=== PATIENT | female | born 1940 | race Caucasian/White ===

== ENCOUNTER → 2017-05-17 | Outpatient (CLI) | payer MEDICARE ==
--- NOTE | 2017-05-18 10:38 | MM ---
Reason for exam: screening (asymptomatic). Last mammogram was performed 1 year and 3 months ago. History: Patient is postmenopausal. Family history of breast cancer in mother at age 65 and breast cancer in grandmother at age 50. Physical Findings: A clinical breast exam by your physician is recommended on an annual basis and results should be correlated with mammographic findings. MG 3D Screening Mammo W/Cad Bilateral CC and MLO view(s) were taken. Prior study comparison: February 02, 2016, bilateral MG 3d screening mammo w/cad. October 14, 2014, left breast MG diagnostic mammo LT w CAD. There are scattered fibroglandular densities. Finding: There are vascular calcifications. There is no discrete abnormality. No significant changes in finding since February 02, 2016 and October 14, 2014. ASSESSMENT: Benign, BI-RAD 2 RECOMMENDATION: Routine screening mammogram of both breasts in 1 year.
== END | disposition home or self-care (01) ==
LOC: RADMAMWWP 11:01
PROVIDERS: ATTEND Family Medicine
DX: Z12.31 Encounter for screening mammogram for malignant neoplasm of breast (principal)
CPT/HCPCS: 77063; G0202

== ENCOUNTER 2018-11-27 19:46 | Inpatient (IN) | payer MEDICARE ==
--- NOTE | 2018-11-27 20:51 | ED ---
Chest Pain HPI - General Chief Complaint: Chest Pain Stated Complaint: chest pain Time Seen by Provider: 11/27/18 20:20 Source: patient, RN notes reviewed, old records reviewed - History of Present Illness Initial Comments: This is an 78-year-old female the ER for evaluation. Patient resents today for evaluation regarding chest pain. Patient has persistent chest pain currently and will admit for cardiac observation MD Complaint: chest pain -: hour(s) Pain Location: substernal, left chest Pain Radiation: none Severity: mild Severity scale (1-10): 2 Quality: heaviness Consistency: constant Improves With: nothing Worsens With: nothing Anginal Symptoms: dyspnea Treatments Prior to Arrival: none - Related Data Home Medications Medication Instructions Recorded Confirmed Allopurinol [Zyloprim] 100 mg PO DAILY 11/27/18 11/27/18 Ezetimibe [Zetia] 10 mg PO DAILY 11/27/18 11/27/18 Metoprolol Succinate [Toprol XL] 200 mg PO DAILY 11/27/18 11/27/18 Montelukast [Singulair] 10 mg PO HS 11/27/18 11/27/18 Niacin [Niaspan] 1,000 mg PO HS 11/27/18 11/27/18 Ramipril 20 mg PO DAILY 11/27/18 11/27/18 Verapamil HCl [Verapamil ER] 240 mg PO DAILY 11/27/18 11/27/18 Warfarin [Coumadin] 3 mg PO HS 11/27/18 11/27/18 metFORMIN HCL ER [Glucophage Xr] 500 mg PO DAILY 11/27/18 11/27/18 Allergies Allergy/AdvReac Type Severity Reaction Status Date / Time Iodinated Contrast- Oral and Allergy Itching Verified 11/27/18 20:51 IV Dye [Iodinated Contrast Media - IV Dye] morphine Allergy Itching Verified 11/27/18 20:51 Review of Systems ROS Statement: Those systems with pertinent positive or pertinent negative responses have been documented in the HPI. ROS Other: All systems not noted in ROS Statement are negative. EKG Findings - EKG Comments: EKG Findings:: EKG shows sinus rhythm rate of 67, SD 154, QRS 84, QTC 452 Past Medical History Past Medical History: Chest Pain / Angina, Diabetes Mellitus, Hyperlipidemia, Hypertension, Pulmonary Embolus (PE), Renal Disease Additional Past Surgical History / Comment(s): ovarian cyst surgery 1958 Smoking Status: Never smoker Past Alcohol Use History: None Reported Past Drug Use History: None Reported General Exam General appearance: alert, in no apparent distress Head exam: Present: atraumatic, normocephalic, normal inspection Eye exam: Present: normal appearance, PERRL, EOMI. Absent: scleral icterus, conjunctival injection, periorbital swelling ENT exam: Present: normal exam, mucous membranes moist Neck exam: Present: normal inspection. Absent: tenderness, meningismus, lymphadenopathy Respiratory exam: Present: normal lung sounds bilaterally. Absent: respiratory distress, wheezes, rales, rhonchi, stridor Cardiovascular Exam: Present: regular rate, normal rhythm, normal heart sounds. Absent: systolic murmur, diastolic murmur, rubs, gallop, clicks GI/Abdominal exam: Present: soft, normal bowel sounds. Absent: distended, tenderness, guarding, rebound, rigid Extremities exam: Present: normal inspection, full ROM, normal capillary refill. Absent: tenderness, pedal edema, joint swelling, calf tenderness Back exam: Present: normal inspection Neurological exam: Present: alert, oriented X3, CN II-XII intact Psychiatric exam: Present: normal affect, normal mood Skin exam: Present: warm, dry, intact, normal color. Absent: rash Course Vital Signs 11/27/18 11/27/18 19:52 22:19 Temperature 97.4 F L 98.7 F Pulse Rate 16 L 63 Respiratory 17 19 Rate Blood Pressure 162/105 157/72 O2 Sat by Pulse 98 95 Oximetry - Reevaluation(s) Reevaluation #1: 11/27/18 22:24 Medical record is reviewed Reevaluation #2: 11/27/18 22:24 Patient complains of chest pain Chest Pain [facility] 78-year-old female the ER for evasive chest pain. Patient be admitted for cardiac observation Disposition Clinical Impression: Chest pain Disposition: ADMITTED IP TO THIS HOSP Condition: Fair Instructions (If sedation given, give patient instructions): Chest Pain (ED) Is patient prescribed a controlled substance at d/c from ED?: No Referrals: Malu Murrell III, MD [Primary Care Provider] - 1-2 days
[2018-11-27 21:14] LABS: Basophils % (A) 1 %; Eosinophils # (A) 0.1 k/uL (0-0.7); Eosinophils % (A) 1 %; HCT 44.9 % (34.0-46.0); HGB 14.2 gm/dL (11.4-16.0); Lymphocytes % (A) 26 %; MCH 32.8 pg (25.0-35.0); MCHC 31.8 g/dL (31.0-37.0); MCV 103.3 fL (80.0-100.0); Macrocytosis Slight; Mean Platelet Volume 9.8; Monocytes # (A) 0.5 k/uL (0-1.0); Monocytes % (A) 7 %; Neutrophils # (A) 4.9 k/uL (1.3-7.7); Neutrophils % (A) 63 %; Platelet Count 110 k/uL (150-450); RBC 4.34 m/uL (3.80-5.40); RDW 13.3 % (11.5-15.5); WBC 7.6 k/uL (3.8-10.6)
[2018-11-27 21:24] LABS: ALT 277 U/L (9-52); AST 478 U/L (14-36); African American GFR (CKD) 58 (>60 ml/min/1.73 sqM); Albumin 4.1 g/dL (3.5-5.0); Alkaline Phosphatase 279 U/L (38-126); Anion Gap 9 mmol/L; Blood Urea Nitrogen 20 mg/dL (7-17); Calcium 10.9 mg/dL (8.4-10.2); Carbon Dioxide 27 mmol/L (22-30); Chloride 104 mmol/L (98-107); Glucose 147 mg/dL (74-99); Magnesium 1.2 mg/dL (1.6-2.3); Potassium 4.5 mmol/L (3.5-5.1); Sodium 140 mmol/L (137-145); Total Bilirubin 2.4 mg/dL (0.2-1.3); Total Protein 6.7 g/dL (6.3-8.2)
[2018-11-27 21:32] LABS: INR 1.7 (<1.2); Prothrombin Time 16.6 sec (9.0-12.0)
[2018-11-27 21:34] LABS: D-Dimer 1.72 mg/L FEU (<0.60); Partial Thromboplastin Time 19.5 sec (22.0-30.0)
--- NOTE | 2018-11-27 21:57 | XR ---
EXAMINATION: XR chest 2V DATE AND TIME: 11/27/2018 9:24 PM CLINICAL INDICATION: PHH; Chest Pain TECHNIQUE: Departmental protocol COMPARISON: 02/02/2016 FINDINGS: The lungs are clear. The pleural spaces are negative. The cardiac silhouette is mildly enlarged. The remainder of the mediastinal silhouette is unremarkabl e. The skeletal structures and soft tissues are negative for acute findings. IMPRESSION: NO ACUTE PROCESS.
[2018-11-27 22:01] LABS: Lipase >20000 U/L (23-300)
[2018-11-27] MEDS ORDERED: NITROGLYCERIN SL TABS 0.4 MG TAB SUBLINGUAL PRN (22:20)
[2018-11-27] MEDS ORDERED: ASPIRIN 81 MG PO STA (22:20)
[2018-11-27] MEDS: SODIUM CHLORIDE 0.9% 1,000 ML IV SCH (22:32)
[2018-11-27] MEDS ORDERED: SODIUM CHLORIDE 0.9% 1,000 ML IV STA (22:46)
[2018-11-27] MEDS ORDERED: SODIUM CHLORIDE 0.9% 500 ML 500 ML IV STA (22:46)
[2018-11-27] MEDS ORDERED: diphenhydrAMINE 50 MG/ML 1 ML VIAL IVP STA (23:36)
[2018-11-27] MEDS ORDERED: FAMOTIDINE 20 MG/2 ML VIAL IV STA (23:36)
[2018-11-27] MEDS ORDERED: methylPREDNISolone SOD SUCCI 125 MG/2 ML VIAL IV STA (23:36)
--- NOTE | 2018-11-28 00:40 | US ---
EXAM: US Abdomen Limited, Right Upper Quadrant CLINICAL HISTORY: Pain TECHNIQUE: Real-time ultrasound of the right upper quadrant with image documentation. COMPARISON: CT abdomen and pelvis dated 11/28/2017 at 12:13 AM. FINDINGS: Liver: Heterogeneous echotexture of the liver with ill-defined areas of hypoattenuation seen within the right hepatic lobe. Liver measures up to 17.4 cm. No intrahepatic bile duct dilation. Gallbladder: Distended gallbladder with gallstones. No definite wall thickening or pericholecystic fluid. Negative sonographic Campbell's sign. Common bile duct: Common bile duct is within normal limits for age measuring 10 9 mm. No stones. No dilation. Pancreas: Unremarkable as visualized. Right kidney: Right kidney measures up to 10.1 cm. Cortical thinning of the right kidney. No stones. No hydronephrosis. IMPRESSION: 1. Distended gallbladder with gallstones. No definite wall thickening or pericholecystic fluid. Negative sonographic Campbell's sign. Given the CT findings, findings are concerning for acute cholecystitis. 2. Heterogeneous echotexture of the liver with ill-defined areas of hypoattenuation seen within the right hepatic lobe. This may be reactive to the above findings. Early phlegmon is not excluded.
--- NOTE | 2018-11-28 01:01 | CT ---
EXAM: CT Abdomen and Pelvis With Intravenous Contrast CLINICAL HISTORY: Pain TECHNIQUE: Axial computed tomography images of the abdomen and pelvis with intravenous contrast. CTDI is 0.242, 0.242, 26.5, 15.8 mGy and DLP is 2017.7 mGy-cm. This CT exam was performed using one or more of the following dose reduction techniques: automated exposure control, adjustment of the mA and/or kV according to patient size, and/or use of iterative reconstruction technique. COMPARISON: CT abdomen and pelvis dated 12/01/2009 FINDINGS: Lung bases: Atelectasis and scarring with lung bases. There are couple pulmonary nodules in the lower lobes the largest within the right lower lobe measuring 5 mm. These are new as compared to the prior. ABDOMEN: Liver: Lobular contour of the liver which may represent cirrhosis. Heterogeneous low attenuating lesions in hepatic segment 4A, the and 5. Is measures up to approximately 7.8 cm. Gallbladder and bile ducts: Numerous gallstones. Small amount of fluid seen adjacent to the gallbladder. Pancreas: Unremarkable. Spleen: Unremarkable. Adrenals: Unremarkable. Kidneys and ureters: Unremarkable. Stomach and bowel: Noninflamed colonic diverticulosis. PELVIS: Appendix: No findings to suggest acute appendicitis. Bladder: Unremarkable. Reproductive: Unremarkable as visualized. ABDOMEN and PELVIS: Intraperitoneal space: Unremarkable. Bones/joints: No acute fracture. No dislocation. Soft tissues: Unremarkable. Vasculature: Vascular calcifications No abdominal aortic aneurysm. Lymph nodes: Unremarkable. IMPRESSION: 1. Numerous gallstones. Small amount of fluid seen adjacent to the gallbladder. Findings may represent early acute cholecystitis. 2. Lobular contour of the liver which may represent cirrhosis. Heterogeneous low attenuating lesions in hepatic segment 4A, the and 5. This measures up to approximately 7.8 cm. Findings may represent edema secondary to acute cholecystitis. Early phlegmon is not excluded. Other etiologies such as malignancy are not excluded.
[2018-11-28 03:16] VITALS: BMI 53.4
[2018-11-28 03:43] LABS: Cholesterol 181 mg/dL (<200); HDL Cholesterol 90 mg/dL (40-60); LDL Cholesterol,Calculated 78 mg/dL (0-99); Triglycerides 66 mg/dL (<150)
[2018-11-28] MEDS: MAGNESIUM SULFATE-D5W PMX 1 GM in DEXTROSE/WATER 1 100ML.BAG IVPB SCH ×4 (04:46→10:00)
--- NOTE | 2018-11-28 08:17 | P.CRDCN ---
History of Present Illness Consult date: 11/28/18 Requesting physician: Kaley Addison Consult reason: chest pain Chief complaint: Epigastric discomfort. History of present illness: This is a pleasant 78-year-old female with history of hypertension, diabetes, hyperlipidemia, nonsmoker, no EtOH, who presents to the hospital with symptoms of epigastric discomfort, she also states that she's been having intermittent discomfort in her abdomen. Her appetite overall recently has been poor. She denies any nausea. Chest x-ray on presentation here did not reveal any acute process. EKG shows normal sinus rhythm with nonspecific ST-T wave changes. Ultrasound of the abdomen showed distended gallbladder with gallstones, no definite wall thickening or Yanni-Colace cystic fluid. Negative Campbell sign. Heterogeneous echo texture of the liver with ill-defined areas of hypoattenuation seen within the right hepatic lobe. This may be reactive to the above findings. CAT scan of the abdomen revealed numerous gallstones, small amount of fluid seen adjacent to the gallbladder. Findings may represent acute cholecystitis. Lobular contour the liver may represent cirrhosis, heterogeneous lesions and hepatic segment 4A and 5 measuring up to 7.8 cm may represent edema secondary to acute cholecystitis. Other etiologies such as malignancy not excluded. Blood pressure 156/70 with a heart rate in the 50s, 96% on room air. White blood cell count 7.6, hemoglobin 14.2, platelet count 110. D-dimer 1.7, sodium 140, potassium 4.5, BUN 20 and creatinine 1.0. Magnesium level I.2, total bilirubin 2.4, AST 478, ALT 277, alk phos 279. Troponin negative 3. BNP 919, lipase greater than 20,000. At the time of my examination this morning, franklin nieto is resting comfortably in bed, no overt complaints. Past Medical History Past Medical History: Chest Pain / Angina, Diabetes Mellitus, Hyperlipidemia, Hy pertension, Pulmonary Embolus (PE), Renal Disease History of Any Multi-Drug Resistant Organisms: None Reported Additional Past Surgical History / Comment(s): ovarian cyst surgery 1957 Past Anesthesia/Blood Transfusion Reactions: No Reported Reaction Smoking Status: Never smoker Past Alcohol Use History: None Reported Past Drug Use History: None Reported Medications and Allergies Home Medications Medication Instructions Recorded Confirmed Type Allopurinol [Zyloprim] 100 mg PO DAILY 11/27/18 11/27/18 History Ezetimibe [Zetia] 10 mg PO DAILY 11/27/18 11/27/18 History Metoprolol Succinate [Toprol XL] 200 mg PO DAILY 11/27/18 11/27/18 History Montelukast [Singulair] 10 mg PO HS 11/27/18 11/27/18 History Niacin [Niaspan] 1,000 mg PO HS 11/27/18 11/27/18 History Ramipril 20 mg PO DAILY 11/27/18 11/27/18 History Verapamil HCl [Verapamil ER] 240 mg PO DAILY 11/27/18 11/27/18 History Warfarin [Coumadin] 3 mg PO HS 11/27/18 11/27/18 History metFORMIN HCL ER [Glucophage Xr] 500 mg PO DAILY 11/27/18 11/27/18 History Allergies Allergy/AdvReac Type Severity Reaction Status Date / Time Iodinated Contrast- Oral and Allergy Itching Verified 11/27/18 20:51 IV Dye [Iodinated Contrast Media - IV Dye] morphine Allergy Itching Verified 11/27/18 20:51 Physical Exam Vitals: Vital Signs Temp Pulse Pulse Resp BP BP Pulse Ox 11/28/18 03:49 97.8 F 51 L 16 156/71 96 11/28/18 03:11 97.8 F 51 L 20 156/71 96 11/28/18 01:00 87 16 169/97 100 11/27/18 23:31 97.8 F 70 18 176/73 11/27/18 23:00 64 17 167/71 11/27/18 22:30 68 17 157/72 96 11/27/18 22:19 98.7 F 63 19 157/72 95 11/27/18 22:00 72 17 143/61 11/27/18 21:30 68 18 124/57 97 11/27/18 21:00 67 19 142/59 95 11/27/18 20:30 58 L 20 143/62 98 11/27/18 19:52 97.4 F L 16 L 17 162/105 98 Intake and Output 11/27/18 11/28/18 11/28/18 22:59 06:59 14:59 Other: Voiding Method Incontinent # Voids 3 Weight 132.449 kg 130.7 kg PHYSICAL EXAMINATION: GENERAL: 78-year-old female in no acute distress at the time of my examination HEENT: Head is atraumatic, normocephalic. Pupils equal, round. Sclera anicteric. Conjunctiva are clear. Mucous membranes of the mouth are moist. Neck is supple. There is no elevated jugular venous pressure. No carotid bruit is heard. HEART EXAMINATION: Heart S1 S2 1 systolic murmur is heard CHEST EXAMINATION: Lungs are clear to auscultation and precussion. No chest wall tenderness is noted on palpation or with deep breathing. ABDOMEN: Soft, obese, mild tenderness noted in the mid epigastric area on palpation . Bowel sounds are heard. No organomegaly noted. EXTREMITIES: 2+ peripheral pulses with trace evidence of peripheral edema and no calf tenderness noted. NEUROLOGIC patient is awake, alert and oriented 3 . Results 11/27/18 20:25 11/27/18 20:25 Cardiac Enzymes 11/27/18 11/27/18 11/28/18 Range/Units 20:25 20:25 03:16 AST 478 H (14-36) U/L Troponin I <0.012 <0.012 (0.000-0.034) ng/mL 11/28/18 Range/Units 06:42 AST (14-36) U/L Troponin I <0.012 (0.000-0.034) ng/mL Coagulation 11/27/18 Range/Units 20:25 PT 16.6 H (9.0-12.0) sec APTT 19.5 L (22.0-30.0) sec Lipids 11/28/18 Range/Units 03:16 Triglycerides 66 (<150) mg/dL Cholesterol 181 (<200) mg/dL HDL Cholesterol 90 H (40-60) mg/dL CBC 11/27/18 Range/Units 20:25 WBC 7.6 (3.8-10.6) k/uL RBC 4.34 (3.80-5.40) m/uL Hgb 14.2 (11.4-16.0) gm/dL Hct 44.9 (34.0-46.0) % Plt Count 110 L (150-450) k/uL Comprehensive Metabolic Panel 11/27/18 Range/Units 20:25 Sodium 140 (137-145) mmol/L Potassium 4.5 (3.5-5.1) mmol/L Chloride 104 (98-107) mmol/L Carbon Dioxide 27 (22-30) mmol/L BUN 20 H (7-17) mg/dL Creatinine 1.05 H (0.52-1.04) mg/dL Glucose 147 H (74-99) mg/dL Calcium 10.9 H (8.4-10.2) mg/dL AST 478 H (14-36) U/L ALT 277 H (9-52) U/L Alkaline Phosphatase 279 H (38-126) U/L Total Protein 6.7 (6.3-8.2) g/dL Albumin 4.1 (3.5-5.0) g/dL Current Medications Generic Name Dose Route Start Last Admin Trade Name Freq PRN Reason Stop Dose Admin Aspirin 325 mg 11/28/18 09:00 Aspirin PO DAILY [facility] Atorvastatin Calcium 80 mg 11/28/18 09:00 Lipitor PO DAILY [facility] Sodium Chloride 1,000 mls @ 20 mls/hr 11/27/18 22:30 11/27/18 22:32 Saline 0.9% IV 20 mls/hr .Q24H MALINA Administration Nitroglycerin 0.4 mg 11/27/18 22:20 Nitrostat SUBLINGUAL Q5M PRN Chest Pain Intake and Output 11/27/18 11/28/18 11/28/18 22:59 06:59 14:59 Other: Voiding Method Incontinent # Voids 3 Weight 132.449 kg 130.7 kg 11/27/18 20:25 11/27/18 20:25 EKG Interpretations (text) EKG shows normal sinus rhythm with nonspecific ST-T wave changes noted in the anterior leads. Assessment and Plan Plan: Assessment and plan #1 symptoms of epigastric discomfort, atypical for acute coronary syndrome. Troponins are negative 3. EKG shows a normal sinus rhythm with nonspecific ST- T wave changes. Evidence of possible acute cholecystitis on gallbladder ultrasound and CT of the abdomen. Associated elevated liver enzymes. #2 hypertension #3 diabetes #4 hyperlipidemia Number 5 history of pulmonary embolism, on Coumadin, INR 1.7 Plan We will obtain an echocardiogram with Doppler study. Decrease aspirin to 81 mg daily, continue Lipitor. Resume, ART inhibitor and Toprol. Hold verapamil for now, heart rate in the 50s to 60s this morning. Further recommendations to follow. DNP note has been reviewed, I agree with a documented findings and plan of care. Patient was seen and examined.
[2018-11-28] MEDS ORDERED: MAGNESIUM SULFATE-D5W PMX 1 GM in DEXTROSE/WATER 1 100ML.BAG IVPB SCH (08:30)
[2018-11-28] MEDS ORDERED: ASPIRIN 325 MG TAB PO SCH (09:00)
[2018-11-28] MEDS ORDERED: METOPROLOL SUCCINATE (ER) 100 MG TAB.ER.24H PO SCH (09:00)
[2018-11-28] MEDS ORDERED: LISINOPRIL 20 MG TAB PO SCH (09:00)
[2018-11-28] MEDS: ATORVASTATIN 80 MG TAB PO SCH (09:54)
[2018-11-28] MEDS: EZETIMIBE 10 MG TAB PO SCH (09:54)
[2018-11-28] MEDS: ASPIRIN 81 MG PO SCH (09:54)
[2018-11-28] MEDS: metFORMIN 500 MG TAB PO SCH ×2 (09:55→20:10)
--- NOTE | 2018-11-28 11:50 | P.NPCON ---
History of Present Illness - Reason for Consult chronic renal failure - History of Present Illness Reason for consultation: Chronic kidney disease and hypercalcemia History of present illness: Patient is a 78-year-old female sitting in renal consultation for chronic kidney disease and hypercalcemia. Patient has chronic kidney disease stage III with baseline creatinine in the range of 1-1.2. Patient also has history of hypercalcemia which has been worked up as an outpatient. Majority of the workup has been negative except for an elevated PTH. Patient was taking hydrochlorothiazide as well as vitamin D supplementation which were discontinued when she was seen in the office. Patient presented to the hospital with epigastric discomfort. She also complained of pain radiating to her back. Patient had a CT with IV contrast on November 27 which revealed gallstones and concern for acute cholecystitis. Additionally her lipase level is noted to be greater than 20,000. Currently her pain is relatively well controlled. She has been voiding. No hematuria or dysuria. Denies use of nonsteroidals. Calcium level was 10.9 on admission. Labs from today are pending. Vital signs are stable. General: The patient appeared well nourished and normally developed. HEENT: Head exam is unremarkable. Neck is without jugular venous distension. LUNGS: Lungs are clear to auscultation and percussion. Breath sounds decreased. HEART: Rate and Rhythm are regular. First and second heart sounds normal. No mur murs, rubs or gallops. ABDOMEN: Abdominal exam reveals normal bowel sounds. Non-tender and non-dist ended. EXTREMITITES: No clubbing, cyanosis, or edema. Past Medical History Past Medical History: Chest Pain / Angina, Diabetes Mellitus, Hyperlipidemia, Hypertension, Pulmonary Embolus (PE), Renal Disease History of Any Multi-Drug Resistant Organisms: None Reported Additional Past Surgical History / Comment(s): ovarian cyst surgery 1957 Past Anesthesia/Blood Transfusion Reactions: No Reported Reaction Smoking Status: Never smoker Past Alcohol Use History: None Reported Past Drug Use History: None Reported Medications and Allergies Home Medications Medication Instructions Recorded Confirmed Type Allopurinol [Zyloprim] 100 mg PO DAILY 11/27/18 11/27/18 History Ezetimibe [Zetia] 10 mg PO DAILY 11/27/18 11/27/18 History Metoprolol Succinate [Toprol XL] 200 mg PO DAILY 11/27/18 11/27/18 History Montelukast [Singulair] 10 mg PO HS 11/27/18 11/27/18 History Niacin [Niaspan] 1,000 mg PO HS 11/27/18 11/27/18 History Ramipril 20 mg PO DAILY 11/27/18 11/27/18 History Verapamil HCl [Verapamil ER] 240 mg PO DAILY 11/27/18 11/27/18 History Warfarin [Coumadin] 3 mg PO HS 11/27/18 11/27/18 History metFORMIN HCL ER [Glucophage Xr] 500 mg PO DAILY 11/27/18 11/27/18 History Allergies Allergy/AdvReac Type Severity Reaction Status Date / Time Iodinated Contrast- Oral and Allergy Itching Verified 11/27/18 20:51 IV Dye [Iodinated Contrast Media - IV Dye] morphine Allergy Itching Verified 11/27/18 20:51 Physical Exam Vitals: Vital Signs Temp Pulse Pulse Resp BP BP Pulse Ox 11/28/18 08:00 97.6 F 50 L 16 167/76 95 11/28/18 03:49 97.8 F 51 L 16 156/71 96 11/28/18 03:11 97.8 F 51 L 20 156/71 96 11/28/18 01:00 87 16 169/97 100 11/27/18 23:31 97.8 F 70 18 176/73 11/27/18 23:00 64 17 167/71 11/27/18 22:30 68 17 157/72 96 11/27/18 22:19 98.7 F 63 19 157/72 95 11/27/18 22:00 72 17 143/61 11/27/18 21:30 68 18 124/57 97 11/27/18 21:00 67 19 142/59 95 11/27/18 20:30 58 L 20 143/62 98 11/27/18 19:52 97.4 F L 16 L 17 162/105 98 Intake and Output 11/27/18 11/28/18 11/28/18 22:59 06:59 14:59 Other: Voiding Method Incontinent Incontinent # Voids 3 Weight 132.449 kg 130.7 kg Results - Lab Results Most recent lab results Calcium 10.9 mg/dL (8.4-10.2) H 11/27/18 20:25 Magnesium 1.2 mg/dL (1.6-2.3) L 11/27/18 20:25 11/27/18 20:25 11/27/18 20:25 Assessment and Plan Plan: Assessment: 1. Chronic kidney disease stage III with baseline creatinine in the range of 1- 1.2. GFR at baseline. Monitor renal function closely as she did receive IV contrast in November 27. 2. Hypercalcemia. Calcium level 10.9 on admission. Workup outpatient has been negative except for elevated PTH. She is not on any thiazide diuretics or calcium or vitamin D supplementation outpatient. 3. Hypomagnesemia from poor oral intake. Being replaced. 4. Epigastric discomfort. Imaging is concerning for acute cholecystitis. Lipase level also greater than 20,000 concerning for acute pancreatitis. Surgery consulted. Plan: Start normal saline at 75 mL an hour. Zoledronic acid 4 mg IV once today. Check nuclear medicine parathyroid scan. Check PTH level. Continue to monitor renal function and urine output. Follow-up echocardiogram. Repeat electrolytes in the morning. Thank you for the consultation. I will continue to follow patient with you during her hospital stay.
[2018-11-28] MEDS ORDERED: ZOLEDRONIC ACID 4 MG in SODIUM CHLORIDE 0.9% 100 ML IV ONE (12:00)
[2018-11-28] MEDS ORDERED: SODIUM CHLORIDE 0.9% 250 ML with PAMIDRONATE 60 MG IV ONE ×2 (13:00)
--- NOTE | 2018-11-28 13:15 | P.HPIM ---
History of Present Illness This is a pleasant 48 years old female with past medical history of diabetes mellitus, hyperlipidemia, hypertension, pulmonary embolism on Coumadin. Patient presents because of epigastric pain and up in the chest to the lower neck. The pain is felt like pressure radiating to the back was pretty severe when she came in, currently she is pain free. No nausea vomiting, she had regular bowel movement yesterday. No dyspnea. No headache or syncope Patient Vitas looks stable, blood pressure 167/76. Heart rate in 50s. Labs rev iewed and CBC is unremarkable, INR is 1.7, d-dimer is 1.7, creatinine 1.05. Liver enzymes markedly elevated at 478 and 277. Serial troponins are negative with less than 0.012. Elevated lipase more than 20,000. CAT scan of the abdomen with intravenous contrast showing gallstones and possible acute cholecystitis, cirrhosis of the liver. EKG showing normal sinus rhythm at [address]-T changes. Chest x-ray no acute process. Review of Systems CONSTITUTIONAL: No fever, no malaise, no fatigue. HEENT: No recent visual problems or hearing problems. Denied any sore throat. CARDIOVASCULAR: No orthopnea, PND, no palpitations, no syncope. PULMONARY: No shortness of breath, no cough, no hemoptysis. GASTROINTESTINAL: No diarrhea, no nausea, no vomiting, no abdominal pain. Normoactive bowel sounds. NEUROLOGICAL: No headaches, no weakness, no numbness. HEMATOLOGICAL: Denies any bleeding or petechiae. GENITOURINARY: Denies any burning micturition, frequency, or urgency. MUSCULOSKELETAL/RHEUMATOLOGICAL: Denies any joint pain, swelling, or any muscle pain. ENDOCRINE: Denies any polyuria or polydipsia. Past Medical History Past Medical History: Chest Pain / Angina, Diabetes Mellitus, Hyperlipidemia, Hypertension, Pulmonary Embolus (PE), Renal Disease History of Any Multi-Drug Resistant Organisms: None Reported Additional Past Surgical History / Comment(s): ovarian cyst surgery 1957 Past Anesthesia/Blood Transfusion Reactions: No Reported Reaction Smoking Status: Never smoker Past Alcohol Use History: None Reported Past Drug Use History: None Reported Medications and Allergies Home Medications Medication Instructions Recorded Confirmed Type Allopurinol [Zyloprim] 100 mg PO DAILY 11/27/18 11/27/18 History Ezetimibe [Zetia] 10 mg PO DAILY 11/27/18 11/27/18 History Metoprolol Succinate [Toprol XL] 200 mg PO DAILY 11/27/18 11/27/18 History Montelukast [Singulair] 10 mg PO HS 11/27/18 11/27/18 History Niacin [Niaspan] 1,000 mg PO HS 11/27/18 11/27/18 History Ramipril 20 mg PO DAILY 11/27/18 11/27/18 History Verapamil HCl [Verapamil ER] 240 mg PO DAILY 11/27/18 11/27/18 History Warfarin [Coumadin] 3 mg PO HS 11/27/18 11/27/18 History metFORMIN HCL ER [Glucophage Xr] 500 mg PO DAILY 11/27/18 11/27/18 History Allergies Allergy/AdvReac Type Severity Reaction Status Date / Time Iodinated Contrast- Oral and Allergy Itching Verified 11/27/18 20:51 IV Dye [Iodinated Contrast Media - IV Dye] morphine Allergy Itching Verified 11/27/18 20:51 Physical Exam Vitals: Vital Signs Temp Pulse Pulse Resp BP BP Pulse Ox 11/28/18 08:00 97.6 F 50 L 16 167/76 95 11/28/18 03:49 97.8 F 51 L 16 156/71 96 11/28/18 03:11 97.8 F 51 L 20 156/71 96 11/28/18 01:00 87 16 169/97 100 11/27/18 23:31 97.8 F 70 18 176/73 11/27/18 23:00 64 17 167/71 11/27/18 22:30 68 17 157/72 96 11/27/18 22:19 98.7 F 63 19 157/72 95 11/27/18 22:00 72 17 143/61 11/27/18 21:30 68 18 124/57 97 11/27/18 21:00 67 19 142/59 95 11/27/18 20:30 58 L 20 143/62 98 11/27/18 19:52 97.4 F L 16 L 17 162/105 98 Intake and Output 11/27/18 11/28/18 11/28/18 22:59 06:59 14:59 Other: Voiding Method Incontinent Incontinent # Voids 3 Weight 132.449 kg 130.7 kg GENERAL: The patient is alert and oriented x3, not in any acute distress. Well developed, well nourished. HEENT: Pupils are round and equally reacting to light. EOMI. No scleral icterus. No conjunctival pallor. Normocephalic, atraumatic. No pharyngeal erythema. No thyromegaly. CARDIOVASCULAR: S1 and S2 present. No murmurs, rubs, or gallops. PULMONARY: Chest is clear to auscultation, no wheezing or crackles. ABDOMEN: Soft, nontender, nondistended, normoactive bowel sounds. No palpable organomegaly. MUSCULOSKELETAL: No joint swelling or deformity. EXTREMITIES: No cyanosis, clubbing, or pedal edema. NEUROLOGICAL: Gross neurological examination did not reveal any focal deficits. SKIN: No rashes. Results CBC & Chem 7: 11/27/18 20:25 11/27/18 20:25 Labs: Abnormal Lab Results - Last 24 Hours (Table) 11/27/18 11/27/18 11/27/18 Range/Units 20:25 20:25 20:25 MCV 103.3 H (80.0-100.0) fL Plt Count 110 L (150-450) k/uL PT 16.6 H (9.0-12.0) sec INR 1.7 H (<1.2) APTT 19.5 L (22.0-30.0) sec D-Dimer 1.72 H (<0.60) mg/L FEU BUN 20 H (7-17) mg/dL Creatinine 1.05 H (0.52-1.04) mg/dL Glucose 147 H (74-99) mg/dL Calcium 10.9 H (8.4-10.2) mg/dL Magnesium 1.2 L (1.6-2.3) mg/dL Total Bilirubin 2.4 H (0.2-1.3) mg/dL AST 478 H (14-36) U/L ALT 277 H (9-52) U/L Alkaline Phosphatase 279 H (38-126) U/L HDL Cholesterol (40-60) mg/dL Lipase >88954 H (23-300) U/L 11/28/18 Range/Units 03:16 MCV (80.0-100.0) fL Plt Count (150-450) k/uL PT (9.0-12.0) sec INR (<1.2) APTT (22.0-30.0) sec D-Dimer (<0.60) mg/L FEU BUN (7-17) mg/dL Creatinine (0.52-1.04) mg/dL Glucose (74-99) mg/dL Calcium (8.4-10.2) mg/dL Magnesium (1.6-2.3) mg/dL Total Bilirubin (0.2-1.3) mg/dL AST (14-36) U/L ALT (9-52) U/L Alkaline Phosphatase (38-126) U/L HDL Cholesterol 90 H (40-60) mg/dL Lipase (23-300) U/L Thrombosis Risk Factor Assmnt - Choose All That Apply Any of the Below Risk Factors Present?: Yes Each Factor Represents 1 point: Obesity (BMI >25), Swollen legs (current) Other Risk Factors: Yes Each Risk Factor Represents 3 Points: Age 75 years or older Other congenital or acquired thrombophilia - If yes, enter type in comment: No Thrombosis Risk Factor Assessment Total Risk Factor Score: 5 Thrombosis Risk Factor Assessment Level: High Risk Assessment and Plan Assessment: Acute Cholecystitis with elevated liver enzymes Acute Pancreatitis Chronic kidney disease, stage III. Patient got intravenous contrast and 11/27/2018 History of pulmonary embolism on Coumadin Essential hypertension Hyperlipidemia Diabetes mellitus Plan: This is a pleasant 6 years old female who presents with possible acute cholecystitis and elevated lipase. Keep patient nothing by mouth, continue with IV fluids, pain management. Call surgical consult. Appreciate input from nephrology and cardiology team.Surgical team has already been consulted. Labs and medication were reviewed. Continue same treatment. Continue with symptomatic treatment. Resume home medication. Monitor lytes and vitals. DVT and GI prophylaxis. Further recommendations of the clinical course of the patient DVT prophylaxis: Subcutaneous heparin GI Prophylaxis: Pepcid Prognosis is guarded
[2018-11-28 13:34] LABS: Basophils % (A) 0 %; Eosinophils % (A) 1 %; HCT 42.6 % (34.0-46.0); HGB 13.5 gm/dL (11.4-16.0); Lymphocytes # (A) 0.8 k/uL (1.0-4.8); Lymphocytes % (A) 23 %; MCH 32.7 pg (25.0-35.0); MCHC 31.8 g/dL (31.0-37.0); MCV 102.9 fL (80.0-100.0); Macrocytosis Slight; Monocytes # (A) 0.1 k/uL (0-1.0); Monocytes % (A) 2 %; Neutrophils # (A) 2.4 k/uL (1.3-7.7); Neutrophils % (A) 73 %; RBC 4.13 m/uL (3.80-5.40); RDW 14.2 % (11.5-15.5); WBC 3.2 k/uL (3.8-10.6)
[2018-11-28 13:54] LABS: Platelet Count 91 k/uL (150-450)
[2018-11-28 13:55] LABS: Albumin 3.7 g/dL (3.5-5.0); Calcium 10.4 mg/dL (8.4-10.2); Potassium 4.6 mmol/L (3.5-5.1); Total Bilirubin 2.7 mg/dL (0.2-1.3); Total Protein 6.6 g/dL (6.3-8.2)
--- NOTE | 2018-11-28 15:43 | P.GSCN ---
<Chana Sin A - Last Filed: 11/28/18 15:36> History of Present Illness Consult date: 11/28/18 Reason for Consult: Acute cholecystitis Requesting physician: Vanessa Espinal History of present illness: CHIEF COMPLAINT: Abdominal pain HISTORY OF PRESENT ILLNESS: 78-year-old female who presented to the emergency room with a chief complaint of chest pain and abdominal pain. Patient reports she was at a senior luncheon yesterday and had a club sandwich to eat. Shortly after she began having abdominal pain that persisted for a few hours. Patient reports the pain was mostly in the epigastric region and radiated to her back. She denies nausea or vomiting. Denies constipation or diarrhea. Denies fever or chills. Patient reports she has had intermittent abdominal pain over the last 4-6 months. Patient unable to recall if certain foods have triggered abdominal pain. She denies alcohol use. PAST MEDICAL HISTORY: See list. PAST SURGICAL HISTORY: See list. SOCIAL HISTORY: No illicit drug use. REVIEW OF SYSTEMS: CONSTITUTIONAL: Denies fever or chills. HEENT: Denies blurred vision, vision changes, or eye pain. Denies hemoptysis CARDIOVASCULAR: Reports chest pain/epigastric pain. RESPIRATORY: No shortness of breath. GASTROINTESTINAL: Refer to HPI for pertinent findings HEMATOLOGIC: Denies bleeding disorders. GENITOURINARY: Denies any blood in urine. SKIN: Denies pruitis. Denies rash. PHYSICAL EXAM: VITAL SIGNS: Reviewed. GENERAL: Well-developed in no acute distress. HEENT: No sclera icterus. Extraocular movements grossly intact. Moist buccal mucosa. Head is atraumatic, normocephalic. ABDOMEN: Soft. Nondistended. Nontender. Positive bowel sounds. NEUROLOGIC: Alert and oriented. Cranial nerves II through XII grossly intact. LABORATORY DATA: Laboratory data upon admission reveals white count 7.6. Hemoglobin 14.2. INR 1.7. Potassium 4.5. Bilirubin 2.4. AST 478. ALT 277. Alkaline phosphatase 279. Lipase greater than 20,000. Repeat blood work this morning reveals amylase 571. Lipase 6254. Bilirubin 2.7. AST 740. ALT 490. IMAGIN. Gallbladder ultrasound: Distended, better with gallstones. No definite wall thickening or pericholecystic fluid. Heterogeneous echotexture of the liver with ill-defined areas of hypoattenuation seen within the right hepatic lobe. This may be reactive to findings above regarding gallbladder. Early phlegmon no t excluded. 2. CT abdomen and pelvis: Numerous gallstones. Small amount of fluid seen adjacent to the gallbladder. Findings may represent early acute cholecystitis. Lobular contour of the liver which may represent cirrhosis. ASSESSMENT: 1. Epigastric pain with radiation to back 2. Acute pancreatitis 3. Acute cholecystitis 4. Cholelithiasis 5. Elevated bilirubin 6. Transaminitis PLAN: 1. NPO. Increase IV fluids to 125cc/hr 2. Monitor labs 3. Continue to hold Coumadin 4. Patient will require cholecystectomy when medically stable. Likely to be performed on an outpatient basis. Nurse practitioner note has been reviewed by physician. Signing provider agrees with the documented findings, assessment, and plan of care. Past Medical History Past Medical History: Chest Pain / Angina, Diabetes Mellitus, Hyperlipidemia, Hypertension, Pulmonary Embolus (PE), Renal Disease History of Any Multi-Drug Resistant Organisms: None Reported Additional Past Surgical History / Comment(s): ovarian cyst surgery 1957 Past Anesthesia/Blood Transfusion Reactions: No Reported Reaction Smoking Status: Never smoker Past Alcohol Use History: None Reported Past Drug Use History: None Reported Medications and Allergies Home Medications Medication Instructions Recorded Confirmed Type Allopurinol [Zyloprim] 100 mg PO DAILY 11/27/18 11/27/18 History Ezetimibe [Zetia] 10 mg PO DAILY 11/27/18 11/27/18 History Metoprolol Succinate [Toprol XL] 200 mg PO DAILY 11/27/18 11/27/18 History Montelukast [Singulair] 10 mg PO HS 11/27/18 11/27/18 History Niacin [Niaspan] 1,000 mg PO HS 11/27/18 11/27/18 History Ramipril 20 mg PO DAILY 11/27/18 11/27/18 History Verapamil HCl [Verapamil ER] 240 mg PO DAILY 11/27/18 11/27/18 History Warfarin [Coumadin] 3 mg PO HS 11/27/18 11/27/18 History metFORMIN HCL ER [Glucophage Xr] 500 mg PO DAILY 11/27/18 11/27/18 History Allergies Allergy/AdvReac Type Severity Reaction Status Date / Time Iodinated Contrast- Oral and Allergy Itching Verified 11/27/18 20:51 IV Dye [Iodinated Contrast Media - IV Dye] morphine Allergy Itching Verified 11/27/18 20:51 Surgical - Exam Vital Signs Temp Pulse Resp BP Pulse Ox 97.4 F L 16 L 17 162/105 98 11/27/18 19:52 11/27/18 19:52 11/27/18 19:52 11/27/18 19:52 11/27/18 19:52 Results - Labs 11/28/18 03:16 11/28/18 03:16 Abnormal Lab Results - Last 24 Hours (Table) 11/27/18 11/27/18 11/27/18 Range/Units 20:25 20:25 20:25 WBC (3.8-10.6) k/uL MCV 103.3 H (80.0-100.0) fL Plt Count 110 L (150-450) k/uL Lymphocytes # (1.0-4.8) k/uL PT 16.6 H (9.0-12.0) sec INR 1.7 H (<1.2) APTT 19.5 L (22.0-30.0) sec D-Dimer 1.72 H (<0.60) mg/L FEU BUN 20 H (7-17) mg/dL Creatinine 1.05 H (0.52-1.04) mg/dL Glucose 147 H (74-99) mg/dL Calcium 10.9 H (8.4-10.2) mg/dL Magnesium 1.2 L (1.6-2.3) mg/dL Total Bilirubin 2.4 H (0.2-1.3) mg/dL AST 478 H (14-36) U/L ALT 277 H (9-52) U/L Alkaline Phosphatase 279 H (38-126) U/L HDL Cholesterol (40-60) mg/dL Amylase (30-110) U/L Lipase >15703 H (23-300) U/L 11/28/18 11/28/18 11/28/18 Range/Units 03:16 03:16 03:16 WBC 3.2 L (3.8-10.6) k/uL MCV 102.9 H (80.0-100.0) fL Plt Count 91 L (150-450) k/uL Lymphocytes # 0.8 L (1.0-4.8) k/uL PT (9.0-12.0) sec INR (<1.2) APTT (22.0-30.0) sec D-Dimer (<0.60) mg/L FEU BUN (7-17) mg/dL Creatinine (0.52-1.04) mg/dL Glucose 209 H (74-99) mg/dL Calcium 10.4 H (8.4-10.2) mg/dL Magnesium (1.6-2.3) mg/dL Total Bilirubin 2.7 H (0.2-1.3) mg/dL AST 740 H (14-36) U/L ALT 490 H (9-52) U/L Alkaline Phosphatase 294 H (38-126) U/L HDL Cholesterol 90 H (40-60) mg/dL Amylase 581 H* (30-110) U/L Lipase 6354 H (23-300) U/L Diabetes panel 11/27/18 11/28/18 11/28/18 Range/Units 20:25 03:16 03:16 Sodium 140 139 (137-145) mmol/L Potassium 4.5 4.6 (3.5-5.1) mmol/L Chloride 104 106 (98-107) mmol/L Carbon Dioxide 27 23 (22-30) mmol/L BUN 20 H 17 (7-17) mg/dL Creatinine 1.05 H 1.00 (0.52-1.04) mg/dL Glucose 147 H 209 H (74-99) mg/dL Calcium 10.9 H 10.4 H (8.4-10.2) mg/dL AST 478 H 740 H (14-36) U/L ALT 277 H 490 H (9-52) U/L Alkaline Phosphatase 279 H 294 H (38-126) U/L Total Protein 6.7 6.6 (6.3-8.2) g/dL Albumin 4.1 3.7 (3.5-5.0) g/dL Triglycerides 66 (<150) mg/dL HDL Cholesterol 90 H (40-60) mg/dL Thyroid panel 11/28/18 Range/Units 03:16 TSH 1.940 (0.465-4.680) mIU/L Calcium panel 11/27/18 11/28/18 Range/Units 20:25 03:16 Calcium 10.9 H 10.4 H (8.4-10.2) mg/dL Albumin 4.1 3.7 (3.5-5.0) g/dL Pituitary panel 11/27/18 11/28/18 11/28/18 Range/Units 20:25 03:16 03:16 Sodium 140 139 (137-145) mmol/L Potassium 4.5 4.6 (3.5-5.1) mmol/L Chloride 104 106 (98-107) mmol/L Carbon Dioxide 27 23 (22-30) mmol/L BUN 20 H 17 (7-17) mg/dL Creatinine 1.05 H 1.00 (0.52-1.04) mg/dL Glucose 147 H 209 H (74-99) mg/dL Calcium 10.9 H 10.4 H (8.4-10.2) mg/dL TSH 1.940 (0.465-4.680) mIU/L Adrenal panel 11/27/18 11/28/18 Range/Units 20:25 03:16 Sodium 140 139 (137-145) mmol/L Potassium 4.5 4.6 (3.5-5.1) mmol/L Chloride 104 106 (98-107) mmol/L Carbon Dioxide 27 23 (22-30) mmol/L BUN 20 H 17 (7-17) mg/dL Creatinine 1.05 H 1.00 (0.52-1.04) mg/dL Glucose 147 H 209 H (74-99) mg/dL Calcium 10.9 H 10.4 H (8.4-10.2) mg/dL Total Bilirubin 2.4 H 2.7 H (0.2-1.3) mg/dL AST 478 H 740 H (14-36) U/L ALT 277 H 490 H (9-52) U/L Alkaline Phosphatase 279 H 294 H (38-126) U/L Total Protein 6.7 6.6 (6.3-8.2) g/dL Albumin 4.1 3.7 (3.5-5.0) g/dL <Triston Le - Last Filed: 11/29/18 08:17> History of Present Illness History of present illness: As above. Patient had evaluated as she was down having her parathyroid scan when I was rounding. Will evaluate 6/28 Surgical - Exam Vital Signs Temp Pulse Resp BP Pulse Ox 97.4 F L 16 L 17 162/105 98 11/27/18 19:52 11/27/18 19:52 11/27/18 19:52 11/27/18 19:52 11/27/18 19:52 Results - Labs 11/29/18 07:01 11/29/18 07:01 Abnormal Lab Results - Last 24 Hours (Table) 11/28/18 11/28/18 11/28/18 Range/Units 03:16 03:16 10:31 WBC 3.2 L (3.8-10.6) k/uL MCV 102.9 H (80.0-100.0) fL Plt Count 91 L (150-450) k/uL Lymphocytes # 0.8 L (1.0-4.8) k/uL Chloride (98-107) mmol/L Glucose 209 H (74-99) mg/dL Calcium 10.4 H (8.4-10.2) mg/dL Total Bilirubin 2.7 H (0.2-1.3) mg/dL AST 740 H (14-36) U/L ALT 490 H (9-52) U/L Alkaline Phosphatase 294 H (38-126) U/L Total Protein (6.3-8.2) g/dL Albumin (3.5-5.0) g/dL Amylase 581 H* (30-110) U/L Lipase 6354 H (23-300) U/L PTH Intact 128.7 H (14.0-72.0) pg/mL 11/29/18 11/29/18 Range/Units 07:01 07:01 WBC (3.8-10.6) k/uL MCV 104.6 H (80.0-100.0) fL Plt Count 95 L (150-450) k/uL Lymphocytes # 0.9 L (1.0-4.8) k/uL Chloride 108 H (98-107) mmol/L Glucose 138 H (74-99) mg/dL Calcium (8.4-10.2) mg/dL Total Bilirubin 1.4 H (0.2-1.3) mg/dL AST 493 H (14-36) U/L ALT 450 H (9-52) U/L Alkaline Phosphatase 238 H (38-126) U/L Total Protein 5.4 L (6.3-8.2) g/dL Albumin 3.2 L (3.5-5.0) g/dL Amylase (30-110) U/L Lipase 402 H (23-300) U/L PTH Intact (14.0-72.0) pg/mL Diabetes panel 11/28/18 11/29/18 Range/Units 03:16 07:01 Sodium 139 139 (137-145) mmol/L Potassium 4.6 4.2 (3.5-5.1) mmol/L Chloride 106 108 H (98-107) mmol/L Carbon Dioxide 23 23 (22-30) mmol/L BUN 17 15 (7-17) mg/dL Creatinine 1.00 0.89 (0.52-1.04) mg/dL Glucose 209 H 138 H (74-99) mg/dL Calcium 10.4 H 9.5 (8.4-10.2) mg/dL AST 740 H 493 H (14-36) U/L ALT 490 H 450 H (9-52) U/L Alkaline Phosphatase 294 H 238 H (38-126) U/L Total Protein 6.6 5.4 L (6.3-8.2) g/dL Albumin 3.7 3.2 L (3.5-5.0) g/dL Thyroid panel 11/28/18 Range/Units 03:16 TSH 1.940 (0.465-4.680) mIU/L Calcium panel 11/28/18 11/29/18 Range/Units 03:16 07:01 Calcium 10.4 H 9.5 (8.4-10.2) mg/dL Albumin 3.7 3.2 L (3.5-5.0) g/dL Pituitary panel 11/28/18 11/28/18 11/29/18 Range/Units 03:16 03:16 07:01 Sodium 139 139 (137-145) mmol/L Potassium 4.6 4.2 (3.5-5.1) mmol/L Chloride 106 108 H (98-107) mmol/L Carbon Dioxide 23 23 (22-30) mmol/L BUN 17 15 (7-17) mg/dL Creatinine 1.00 0.89 (0.52-1.04) mg/dL Glucose 209 H 138 H (74-99) mg/dL Calcium 10.4 H 9.5 (8.4-10.2) mg/dL TSH 1.940 (0.465-4.680) mIU/L Adrenal panel 11/28/18 11/29/18 Range/Units 03:16 07:01 Sodium 139 139 (137-145) mmol/L Potassium 4.6 4.2 (3.5-5.1) mmol/L Chloride 106 108 H (98-107) mmol/L Carbon Dioxide 23 23 (22-30) mmol/L BUN 17 15 (7-17) mg/dL Creatinine 1.00 0.89 (0.52-1.04) mg/dL Glucose 209 H 138 H (74-99) mg/dL Calcium 10.4 H 9.5 (8.4-10.2) mg/dL Total Bilirubin 2.7 H 1.4 H (0.2-1.3) mg/dL AST 740 H 493 H (14-36) U/L ALT 490 H 450 H (9-52) U/L Alkaline Phosphatase 294 H 238 H (38-126) U/L Total Protein 6.6 5.4 L (6.3-8.2) g/dL Albumin 3.7 3.2 L (3.5-5.0) g/dL
[2018-11-28] MEDS: FAMOTIDINE 20 MG/2 ML VIAL IV SCH ×2 (15:45→20:11)
--- NOTE | 2018-11-28 16:44 | NM ---
EXAMINATION TYPE: NM parathyroid w/spect DATE OF EXAM: 11/28/2018 COMPARISON: NONE HISTORY: 78-year-old female with hypercalcemia TECHNIQUE: Following administration of 25.6 mCi Tc99m Sestamibi. Anterior projection images of the ne ck and chest were obtained 10 minutes and 2.5 hours post injection. SPECT images of the neck and rose st were obtained and reconstructed in three axes. FINDINGS: Thyroid tracer washout: Delayed images demonstrate near-complete tracer washout from the thyroid. Parathyroid uptake: The 2.5 hour delayed images show persistent focal uptake in the region of the upp er pole of the left thyroid lobe. Normal uptake: There is physiological tracer uptake in the salivary glands. IMPRESSION: Findings suspicious for parathyroid adenoma at the level of the upper pole left thyroid lobe.
[2018-11-28] MEDS: HEPARIN SODIUM,PORCINE 5,000 UNIT/ML 1 ML VIAL SQ SCH (20:10)
[2018-11-28] MEDS: SODIUM CHLORIDE 0.9% 1,000 ML IV SCH (21:45)
[2018-11-29] MEDS: SODIUM CHLORIDE 0.9% 1,000 ML IV SCH ×2 (05:45→10:26)
[2018-11-29 07:19] LABS: Basophils % (A) 0 %; Eosinophils # (A) 0.1 k/uL (0-0.7); Eosinophils % (A) 1 %; HCT 40.8 % (34.0-46.0); HGB 12.7 gm/dL (11.4-16.0); Lymphocytes # (A) 0.9 k/uL (1.0-4.8); Lymphocytes % (A) 14 %; MCH 32.7 pg (25.0-35.0); MCHC 31.2 g/dL (31.0-37.0); MCV 104.6 fL (80.0-100.0); Macrocytosis Slight; Mean Platelet Volume 9.4; Monocytes # (A) 0.3 k/uL (0-1.0); Monocytes % (A) 4 %; Neutrophils # (A) 5.1 k/uL (1.3-7.7); Neutrophils % (A) 80 %; RDW 13.4 % (11.5-15.5); WBC 6.3 k/uL (3.8-10.6)
[2018-11-29 07:31] LABS: Platelet Count 95 k/uL (150-450)
[2018-11-29 07:35] LABS: Albumin 3.2 g/dL (3.5-5.0); Calcium 9.5 mg/dL (8.4-10.2); Magnesium 1.6 mg/dL (1.6-2.3); Potassium 4.2 mmol/L (3.5-5.1); Total Bilirubin 1.4 mg/dL (0.2-1.3); Total Protein 5.4 g/dL (6.3-8.2)
[2018-11-29] MEDS ORDERED: METOPROLOL SUCCINATE (ER) 100 MG TAB.ER.24H PO SCH (09:00)
[2018-11-29] MEDS: LISINOPRIL 20 MG TAB PO SCH (09:31)
[2018-11-29] MEDS: EZETIMIBE 10 MG TAB PO SCH (09:31)
[2018-11-29] MEDS: ASPIRIN 81 MG PO SCH (09:31)
[2018-11-29] MEDS: ATORVASTATIN 80 MG TAB PO SCH (09:31)
[2018-11-29] MEDS: HEPARIN SODIUM,PORCINE 5,000 UNIT/ML 1 ML VIAL SQ SCH ×2 (09:32→20:51)
[2018-11-29] MEDS: FAMOTIDINE 20 MG/2 ML VIAL IV SCH (09:32)
--- NOTE | 2018-11-29 09:35 | P.CONS ---
History of Present Illness - Reason for Consult Consult date: 11/29/18 Abdominal pain pancreatitis Requesting physician: Kaley Addison - Chief Complaint Abdominal pain - History of Present Illness 78-year-old female past medical history morbid obesity, diabetes hypertension pulmonary embolism maintained on warfarin admitted with a one-month history of intermittent upper abdominal pain. Denies fever chills hematemesis hematochezia or melena. Admission white count 7.6. Hemoglobin 14.2. MCV 103. Platelet 110. INR 1.7. Total bilirubin 2.4. AST 478. ALT 277. AP 279. Lipase greater than 20,000. No history of pancreatitis. No alcohol. No changes in medications. Triglycerides 66. Presently total bilirubin has improved 1.4. AST 493. ALT 450. AP 238. Lipase 402. Amylase 98. Serum albumin 4.1. Serum protein 6.7. BUN 20. Creatinine 1.0. PTH elevated at 128. Parathyroid scan suspicious for parathyroid adenoma upper left thyroid lobe. No previous liver function tests to review. Ultrasound abdomen distended gallbladder with stones no fluid. CT abdomen and pelvis reported a lobular contour of the liver which may represent cirrhosis with heterogeneous low attenuating lesions in the hepatic segment 4A5 measuring up to 7.8 cm. Findings may represent edema secondary to acute cholecystitis early phlegmon possible malignancy not excluded. Numerous gallstones. Small amount of fluid adjacent to the gallbladder may represent acute cholecystitis. No weight loss. No history of known liver diseases. No history of hepatitis. No gastric surgeries. Review of Systems Constitutional: Denies fever, chills, sweats, weight gain, or loss. HEENT: Negative for migraines, blurred vision or loss, earaches, drainage, tinnitus, oral mucosal lesions, dysphagia, or odynophagia. CARDIAC: Negative for chest pain, arrhythmias, or palpitation. RESPIRATORY: Negative for shortness of breath, hemoptysis, cough, or sputum production. GI: See HPI for pertinent findings. : Negative for hematuria, urgency, frequency, polyuria, or dysuria. GYNc: Denies possibility of . Negative vaginal discharge. MUSCULOSKELETAL: Negative for muscle aches, swelling, arthritis, and arthralgias. NEUROLOGIC: Negative for stroke or TIA. ENDOCRINE: Negative for thyroid problems. SKIN: Negative for rash or itching. PSYCHIATRIC: Negative history for depression and anxiety Past Medical History Past Medical History: Chest Pain / Angina, Diabetes Mellitus, Hyperlipidemia, Hypertension, Pulmonary Embolus (PE), Renal Disease History of Any Multi-Drug Resistant Organisms: None Reported Additional Past Surgical History / Comment(s): ovarian cyst surgery 1957 Past Anesthesia/Blood Transfusion Reactions: No Reported Reaction Smoking Status: Never smoker Past Alcohol Use History: None Reported Past Drug Use History: None Reported Medications and Allergies Home Medications Medication Instructions Recorded Confirmed Type Allopurinol [Zyloprim] 100 mg PO DAILY 11/27/18 11/27/18 History Ezetimibe [Zetia] 10 mg PO DAILY 11/27/18 11/27/18 History Metoprolol Succinate [Toprol XL] 200 mg PO DAILY 11/27/18 11/27/18 History Montelukast [Singulair] 10 mg PO HS 11/27/18 11/27/18 History Niacin [Niaspan] 1,000 mg PO HS 11/27/18 11/27/18 History Ramipril 20 mg PO DAILY 11/27/18 11/27/18 History Verapamil HCl [Verapamil ER] 240 mg PO DAILY 11/27/18 11/27/18 History Warfarin [Coumadin] 3 mg PO HS 11/27/18 11/27/18 History metFORMIN HCL ER [Glucophage Xr] 500 mg PO DAILY 11/27/18 11/27/18 History Allergies Allergy/AdvReac Type Severity Reaction Status Date / Time Iodinated Contrast- Oral and Allergy Itching Verified 11/27/18 20:51 IV Dye [Iodinated Contrast Media - IV Dye] morphine Allergy Itching Verified 11/27/18 20:51 Physical Exam Vitals: Vital Signs Temp Pulse Resp BP Pulse Ox 11/29/18 04:00 97.7 F 52 L 18 166/61 95 11/29/18 03:27 16 11/29/18 00:00 97.8 F 63 16 154/63 96 11/28/18 20:00 97.6 F 47 L 18 158/66 95 11/28/18 16:00 98.2 F 51 L 16 152/65 96 11/28/18 12:50 97.5 F L 51 L 16 164/75 96 Intake and Output 11/28/18 11/29/18 11/29/18 22:59 06:59 14:59 Other: Voiding Method Incontinent Incontinent # Voids 1 1 Weight 128.6 kg General appearance: The patient is alert, oriented, in no acute distress. HET: Head is normocephalic and atraumatic. Pupils are equal and reactive. Orop harynx is clear without lesions. Neck: Supple without lymphadenopathy. Trachea midline. Heart: S1 S2. Regular rate and rhythm. Lungs: No crackles or wheezes are heard. Abdomen: Soft, obese mild tenderness to the mid epigastrium bilateral upper abdomen, nondistended with bowel sounds. No peritoneal signs. No palpable organomegaly or masses. Extremities: Normal skin color and turgor. No cyanosis, rash, ulceration, clubbing, or edema. Radial and pedal pulses are 2/4 bilaterally. Neurological: No focal deficits. Strength and sensation are grossly intact. Results CBC & Chem 7: 11/29/18 07:01 11/29/18 07:01 Labs: Abnormal Lab Results - Last 24 Hours (Table) 11/28/18 11/28/18 11/28/18 Range/Units 03:16 03:16 10:31 WBC 3.2 L (3.8-10.6) k/uL MCV 102.9 H (80.0-100.0) fL Plt Count 91 L (150-450) k/uL Lymphocytes # 0.8 L (1.0-4.8) k/uL Chloride (98-107) mmol/L Glucose 209 H (74-99) mg/dL Calcium 10.4 H (8.4-10.2) mg/dL Total Bilirubin 2.7 H (0.2-1.3) mg/dL AST 740 H (14-36) U/L ALT 490 H (9-52) U/L Alkaline Phosphatase 294 H (38-126) U/L Total Protein (6.3-8.2) g/dL Albumin (3.5-5.0) g/dL Amylase 581 H* (30-110) U/L Lipase 6354 H (23-300) U/L PTH Intact 128.7 H (14.0-72.0) pg/mL 11/29/18 11/29/18 Range/Units 07:01 07:01 WBC (3.8-10.6) k/uL MCV 104.6 H (80.0-100.0) fL Plt Count 95 L (150-450) k/uL Lymphocytes # 0.9 L (1.0-4.8) k/uL Chloride 108 H (98-107) mmol/L Glucose 138 H (74-99) mg/dL Calcium (8.4-10.2) mg/dL Total Bilirubin 1.4 H (0.2-1.3) mg/dL AST 493 H (14-36) U/L ALT 450 H (9-52) U/L Alkaline Phosphatase 238 H (38-126) U/L Total Protein 5.4 L (6.3-8.2) g/dL Albumin 3.2 L (3.5-5.0) g/dL Amylase (30-110) U/L Lipase 402 H (23-300) U/L PTH Intact (14.0-72.0) pg/mL Comments: Parathyroid scan report reviewed by Dr. Mcfarlane CT scan - abdomen: report reviewed (Dr. Mcfarlane) US - abdomen: report reviewed Assessment and Plan (1) Pancreatitis Narrative/Plan: 78-year-old female admitted with elevated pancreatic and liver enzymes with 1 month history of intermittent upper abdominal pain without fever chills hematemesis hematochezia melena. Abdominal imaging reported multiple gallstones as well as a lobular cirrhotic liver with hepatic masses. Clinically suspect an acute biliary pancreatitis however underlying proposed nonalcoholic chronic liver disease cirrhosis within the differential possible underlying hepatic malignancy versus possible early phlegmon cannot be excluded. Current Visit: Yes Status: Acute Code(s): K85.90 - ACUTE PANCREATITIS W ITHOUT NECROSIS OR INFECTION, UNSP SNOMED Code(s): 33187651 (2) Cholelithiases Current Visit: Yes Status: Acute Code(s): K80.20 - CALCULUS OF GALLBLADDER W/O CHOLECYSTITIS W/O OBSTRUCTION SNOMED Code(s): 510193314 (3) Elevated liver enzymes Current Visit: Yes Status: Acute Code(s): R74.8 - ABNORMAL LEVELS OF OTHER SERUM ENZYMES SNOMED Code(s): 444997048 (4) Morbid obesity with BMI of 50.0-59.9, adult Current Visit: Yes Status: Acute Code(s): E66.01 - MORBID (SEVERE) OBESITY DUE TO EXCESS CALORIES; Z68.43 - BODY MASS INDEX (BMI) 50-59.9, ADULT SNOMED Code(s): 584687060 (5) Elevated parathyroid hormone Narrative/Plan: Parathyroid scan reported possible adenoma Current Visit: Yes Status: Acute Code(s): E34.9 - ENDOCRINE DISORDER, UNSPECIFIED SNOMED Code(s): 5464283 (6) Warfarin-induced coagulopathy Current Visit: Yes Status: Acute Code(s): D68.32 - HEMORRHAGIC DISORD D/T EXTRINSIC CIRCULATING ANTICOAGULANTS; T45.515A - ADVERSE EFFECT OF ANTICO AGULANTS, INITIAL ENCOUNTER SNOMED Code(s): 54617598 Plan: 1. Liver function tests are trending down therefore ERCP is not indicated at this time however due to the findings reported on ultrasound and CT we'll proceed with an MRI of the liver/MRCP with and without contrast. Full serologic liver serology requested to evaluate possible nonalcoholic chronic liver disease. Hepatitis screen. AFP. 2. Daily CMP CBC lipase PT/INR. 3. Diet per surgery. GI prophylaxis. We'll follow with you. Thank you for this kind referral and the opportunity to participate in the care of your patient. This consultation was discussed with Dr. Mcfarlane. The impression and plan of care have been directed as dictated.
--- NOTE | 2018-11-29 09:35 | P.PN ---
Subjective Patient is seen in follow-up for chronic kidney disease and hypercalcemia. Patient has chronic kidney disease stage III with baseline creatinine in the range of 1-1.2. GFR is at baseline. Calcium level is also in the normal range today. Denies chest pain or shortness of breath. No vomiting or diarrhea. She wants to eat. Vital signs are stable. General: The patient appeared well nourished and normally developed. HEENT: Head exam is unremarkable. Neck is without jugular venous distension. LUNGS: Lungs are clear to auscultation and percussion. Breath sounds decreased. HEART: Rate and Rhythm are regular. First and second heart sounds normal. No murmurs, rubs or gallops. ABDOMEN: Abdominal exam reveals normal bowel sounds. Non-tender and non- distended. No evidence of peritonitis. EXTREMITITES: No clubbing, cyanosis, or edema. Objective - Vital Signs Vital signs: Vital Signs Temp 97.7 F 11/29/18 04:00 Pulse 52 L 11/29/18 04:00 Resp 18 11/29/18 04:00 BP 166/61 11/29/18 04:00 Pulse Ox 95 11/29/18 04:00 Intake & Output 11/28/18 11/29/18 11/29/18 18:59 06:59 18:59 Intake Total 450 Balance 450 Weight 128.6 kg Intake: Intake, IV Titration 450 Amount Magnesium Sulfate-D5w Pmx 300 1 gm In Dextrose/Water 1 100ml.bag @ 100 mls/hr IVPB Q1H [facility] Rx#: [id number] Sodium Chloride 0.9% 1, 150 000 ml @ 125 mls/hr IV . Q8H [facility] Rx#:[id number] Other: Voiding Method Incontinent Incontinent # Voids 2 1 - Labs CBC & Chem 7: 11/29/18 07:01 11/29/18 07:01 Labs: Abnormal Lab Results - Last 24 Hours (Table) 11/28/18 11/28/18 11/28/18 Range/Units 03:16 03:16 10:31 WBC 3.2 L (3.8-10.6) k/uL MCV 102.9 H (80.0-100.0) fL Plt Count 91 L (150-450) k/uL Lymphocytes # 0.8 L (1.0-4.8) k/uL Chloride (98-107) mmol/L Glucose 209 H (74-99) mg/dL Calcium 10.4 H (8.4-10.2) mg/dL Total Bilirubin 2.7 H (0.2-1.3) mg/dL AST 740 H (14-36) U/L ALT 490 H (9-52) U/L Alkaline Phosphatase 294 H (38-126) U/L Total Protein (6.3-8.2) g/dL Albumin (3.5-5.0) g/dL Amylase 581 H* (30-110) U/L Lipase 6354 H (23-300) U/L PTH Intact 128.7 H (14.0-72.0) pg/mL 11/29/18 11/29/18 Range/Units 07:01 07:01 WBC (3.8-10.6) k/uL MCV 104.6 H (80.0-100.0) fL Plt Count 95 L (150-450) k/uL Lymphocytes # 0.9 L (1.0-4.8) k/uL Chloride 108 H (98-107) mmol/L Glucose 138 H (74-99) mg/dL Calcium (8.4-10.2) mg/dL Total Bilirubin 1.4 H (0.2-1.3) mg/dL AST 493 H (14-36) U/L ALT 450 H (9-52) U/L Alkaline Phosphatase 238 H (38-126) U/L Total Protein 5.4 L (6.3-8.2) g/dL Albumin 3.2 L (3.5-5.0) g/dL Amylase (30-110) U/L Lipase 402 H (23-300) U/L PTH Intact (14.0-72.0) pg/mL Assessment and Plan Plan: Assessment: 1. Chronic kidney disease stage III with baseline creatinine in the range of 1- 1.2. GFR at baseline. Monitor renal function closely as she did receive IV contrast in November 27. 2. Hypercalcemia. Calcium level 10.9 on admission. Workup outpatient has been negative except for elevated PTH. Parathyroid scan was suspicious for parathyroid adenoma in the left upper lobe. She is not on any thiazide diuretics or calcium or vitamin D supplementation outpatient. Calcium level normal. She did receive a dose of zoledronic acid on November 28. 3. Hypomagnesemia from poor oral intake. Better. 4. Epigastric discomfort. Imaging is concerning for acute cholecystitis. Lipase level also greater than 20,000 concerning for acute pancreatitis. Surgery following. Plan: Maintain IV fluids. Decrease rate once diet initiated. Continue to monitor renal function and urine output. Follow-up echocardiogram. Repeat electrolytes in the morning. If calcium level rises again, will start Sensipar. Also discussed with surgery the option for possible parathyroidectomy. Patient would like to avoid surgery if possible.
[2018-11-29] MEDS: metFORMIN 500 MG TAB PO SCH ×2 (10:26→20:51)
--- NOTE | 2018-11-29 10:28 | P.PN ---
<Chana Sin - Last Filed: 11/29/18 11:45> Subjective Progress Note Date: 11/29/18 CHIEF COMPLAINT: Abdominal pain HISTORY OF PRESENT ILLNESS: Patient examined this morning at the bedside. She reports she is tired but feeling well. Denies abdominal pain. Denies nausea or vomiting. Patient underwent parathyroid nuclear study yesterday with finding suspicious for parathyroid adenoma at the level of the upper pole left thyroid lobe. WBC 6.3. Hemoglobin 12.7. Bilirubin 1.4. AST 493. ALT 450. Alkaline phosphatase 238. PHYSICAL EXAM: VITAL SIGNS: Reviewed. GENERAL: Well-developed in no acute distress. HEENT: No sclera icterus. Extraocular movements grossly intact. Moist buccal mucosa. Head is atraumatic, normocephalic. ABDOMEN: Soft. Nondistended. Nontender. Positive bowel sounds. NEUROLOGIC: Alert and oriented. Cranial nerves II through XII grossly intact. ASSESSMENT: 1. Epigastric pain with radiation to back 2. Acute pancreatitis 3. Possible acute cholecystitis 4. Cholelithiasis 5. Elevated bilirubin 6. Transaminitis 7. Hepatic lesions 8. Hypercalcemia with possible parathyroid adenoma PLAN: 1. GI consulted yesterday for further evaluation. Continue NPO until evaluation by GI service 2. Continue IV fluids 3. Monitor labs 4. Continue to hold Coumadin 5. Patient will require cholecystectomy when medically stable. Likely to be performed on an outpatient basis. Nurse practitioner note has been reviewed by physician. Signing provider agrees with the documented findings, assessment, and plan of care. Objective - Vital Signs Vital signs: Vital Signs Temp 97.7 F 11/29/18 04:00 Pulse 52 L 11/29/18 04:00 Resp 18 11/29/18 04:00 BP 166/61 11/29/18 04:00 Pulse Ox 95 11/29/18 04:00 Intake & Output 11/28/18 11/29/18 11/29/18 18:59 06:59 18:59 Intake Total 450 Balance 450 Weight 128.6 kg Intake: Intake, IV Titration 450 Amount Magnesium Sulfate-D5w Pmx 300 1 gm In Dextrose/Water 1 100ml.bag @ 100 mls/hr IVPB Q1H [facility] Rx#: [id number] Sodium Chloride 0.9% 1, 150 000 ml @ 125 mls/hr IV . Q8H [facility] Rx#:[id number] Other: Voiding Method Incontinent Incontinent # Voids 2 1 - Labs CBC & Chem 7: 11/29/18 07:01 11/29/18 07:01 Labs: Abnormal Lab Results - Last 24 Hours (Table) 11/28/18 11/28/18 11/28/18 Range/Units 03:16 03:16 10:31 WBC 3.2 L (3.8-10.6) k/uL MCV 102.9 H (80.0-100.0) fL Plt Count 91 L (150-450) k/uL Lymphocytes # 0.8 L (1.0-4.8) k/uL Chloride (98-107) mmol/L Glucose 209 H (74-99) mg/dL Calcium 10.4 H (8.4-10.2) mg/dL Total Bilirubin 2.7 H (0.2-1.3) mg/dL AST 740 H (14-36) U/L ALT 490 H (9-52) U/L Alkaline Phosphatase 294 H (38-126) U/L Total Protein (6.3-8.2) g/dL Albumin (3.5-5.0) g/dL Amylase 581 H* (30-110) U/L Lipase 6354 H (23-300) U/L PTH Intact 128.7 H (14.0-72.0) pg/mL 11/29/18 11/29/18 Range/Units 07:01 07:01 WBC (3.8-10.6) k/uL MCV 104.6 H (80.0-100.0) fL Plt Count 95 L (150-450) k/uL Lymphocytes # 0.9 L (1.0-4.8) k/uL Chloride 108 H (98-107) mmol/L Glucose 138 H (74-99) mg/dL Calcium (8.4-10.2) mg/dL Total Bilirubin 1.4 H (0.2-1.3) mg/dL AST 493 H (14-36) U/L ALT 450 H (9-52) U/L Alkaline Phosphatase 238 H (38-126) U/L Total Protein 5.4 L (6.3-8.2) g/dL Albumin 3.2 L (3.5-5.0) g/dL Amylase (30-110) U/L Lipase 402 H (23-300) U/L PTH Intact (14.0-72.0) pg/mL <Triston Le - Last Filed: 11/29/18 15:24> Subjective As above. Patient denies pain currently. MRI was apparently not able to be performed given her body habitus. Plan MRI liver and MRCP as outpatient. We'll schedule cholecystectomy likely following that. Defer management of possible hyperparathyroidism to nephrology and possibly outpatient endocrinology or endocrine surgery. Objective - Vital Signs Vital signs: Vital Signs Temp 97.9 F 11/29/18 12:00 Pulse 48 L 11/29/18 12:00 Resp 18 11/29/18 12:00 BP 165/80 11/29/18 12:00 Pulse Ox 96 11/29/18 12:00 Intake & Output 11/28/18 11/29/18 11/29/18 18:59 06:59 18:59 Intake Total 450 1000 Balance 450 1000 Weight 128.6 kg Intake: Intake, IV Titration 450 1000 Amount Magnesium Sulfate-D5w Pmx 300 1 gm In Dextrose/Water 1 100ml.bag @ 100 mls/hr IVPB Q1H [facility] Rx#: [id number] Sodium Chloride 0.9% 1, 150 1000 000 ml @ 75 mls/hr IV . [id number] [facility] Rx#:[id number] Other: Voiding Method Incontinent Incontinent Incontinent # Voids 2 1 - Labs CBC & Chem 7: 11/29/18 07:01 11/29/18 07:01 Labs: Abnormal Lab Results - Last 24 Hours (Table) 11/28/18 11/29/18 11/29/18 Range/Units 10:31 07:01 07:01 MCV 104.6 H (80.0-100.0) fL Plt Count 95 L (150-450) k/uL Lymphocytes # 0.9 L (1.0-4.8) k/uL Chloride 108 H (98-107) mmol/L Glucose 138 H (74-99) mg/dL Total Bilirubin 1.4 H (0.2-1.3) mg/dL AST 493 H (14-36) U/L ALT 450 H (9-52) U/L Alkaline Phosphatase 238 H (38-126) U/L Total Protein 5.4 L (6.3-8.2) g/dL Albumin 3.2 L (3.5-5.0) g/dL Lipase 402 H (23-300) U/L PTH Intact 128.7 H (14.0-72.0) pg/mL
[2018-11-29] MEDS: amLODIPine 5 MG TAB PO SCH (12:41)
--- NOTE | 2018-11-29 17:58 | PN ---
PROGRESS NOTE DATE OF SERVICE: Mrs. Mathur has abdominal discomfort and elevated lipase suggestive of pancreatitis; probably has gallstones as well. She was seen by Dr. Le, who recommended that we optimize and stabilize her and probably perform surgery as an outpatient. Heart rate is in the 50s. I am recommending we decrease metoprolol tartrate, use Norvasc for pain control, and outpatient surgery will be performed. She is doing well. No chest discomfort or shortness of breath. Resting comfortably. Vitals are stable. There is no JVD or carotid bruit. S1, S2 heard normally. Lungs are clear. Abdomen and lower extremity exam unchanged. Plan is to continue current medications, and if discharged, she will follow up with Dr. Le for surgery. MMODL / IJN: [id number] /
[2018-11-29 18:53] LABS: Protein, Total 5.2 g/dL (6.2-8.2)
[2018-11-29 19:40] LABS: Alpha Fetoprotein, Tumor Mkr <2.5 ng/mL (0.0-7.9)
[2018-11-29 20:03] LABS: Hepatitis A Antibody IgM Non-Reactive (Non-Reactive); Hepatitis B Core IgM Non-Reactive (Non-Reactive)
[2018-11-29 20:54] LABS: Glucose,Whole Blood 166 mg/dL (75-99)
--- NOTE | 2018-11-29 22:48 | P.PN ---
Subjective This is a pleasant 48 years old female with past medical history of diabetes mellitus, hyperlipidemia, hypertension, pulmonary embolism on Coumadin. Patient presents because of epigastric pain and up in the chest to the lower neck. The pain is felt like pressure radiating to the back was pretty severe when she came in, currently she is pain free. No nausea vomiting, she had regular bowel movement yesterday. No dyspnea. No headache or syncope Patient Vitas looks stable, blood pressure 167/76. Heart rate in 50s. Labs reviewed and CBC is unremarkable, INR is 1.7, d-dimer is 1.7, creatinine 1.05. Liver enzymes markedly elevated at 478 and 277. Serial troponins are negative with less than 0.012. Elevated lipase more than 20,000. CAT scan of the abdomen with intravenous contrast showing gallstones and possible acute cholecystitis, cirrhosis of the liver. EKG showing normal sinus rhythm at [address]-T changes. Chest x-ray no acute process. 11/29/2018 pt is lying in bed , no more abd pain , no n/v today . surgery plan for outpt cholecystoctomy . Gi team input is appreciated , discussed the case today with lovely abel , work up is requested including MRI of the liver and afp for liver mass, serology work up for cirrhosis, and MRCP for biliarry pancreatitis, pt denies chest pain or dyspena ,she is hemodynmically stable ROS CONSTITUTIONAL: No fever, no malaise, no fatigue. HEENT: No recent visual problems or hearing problems. Denied any sore throat. CARDIOVASCULAR: No orthopnea, PND, no palpitations, no syncope. PULMONARY: No shortness of breath, no cough, no hemoptysis. GASTROINTESTINAL: No diarrhea, no nausea, no vomiting, no abdominal pain. Normoactive bowel sounds. NEUROLOGICAL: No headaches, no weakness, no numbness. HEMATOLOGICAL: Denies any bleeding or petechiae. GENITOURINARY: Denies any burning micturition, frequency, or urgency. MUSCULOSKELETAL/RHEUMATOLOGICAL: Denies any joint pain, swelling, or any muscle pain. ENDOCRINE: Denies any polyuria or polydipsia. medication ; norvasc 5 mg, asa 81 mg, lipitor 80 mg, zetia 10 mg , pepcid 20 mg, heparin 5000 U, metformin 250 mg, lisinopril 40 mg metoprolol 50 mg , nitroglycerine 0.4 mg, normal saline 75 ml/hr Objective - Vital Signs Vital signs: Vital Signs Temp 98.3 F 11/29/18 20:00 Pulse 56 L 11/29/18 20:00 Resp 20 11/29/18 20:00 BP 151/67 11/29/18 20:00 Pulse Ox 96 11/29/18 20:00 Intake & Output 11/29/18 11/29/18 11/30/18 06:59 18:59 06:59 Intake Total 1000 Balance 1000 Weight 128.6 kg Intake: Intake, IV Titration 1000 Amount Sodium Chloride 0.9% 1, 1000 000 ml @ 75 mls/hr IV . [id number] [facility] Rx#:[id number] Other: Voiding Method Incontinent Incontinent # Voids 1 2 - Exam GENERAL: The patient is alert and oriented x3, not in any acute distress. Well developed, well nourished. HEENT: Pupils are round and equally reacting to light. EOMI. No scleral icterus. No conjunctival pallor. Normocephalic, atraumatic. No pharyngeal erythema. No thyromegaly. CARDIOVASCULAR: S1 and S2 present. No murmurs, rubs, or gallops. PULMONARY: Chest is clear to auscultation, no wheezing or crackles. ABDOMEN: Soft, nontender, nondistended, normoactive bowel sounds. No palpable organomegaly. MUSCULOSKELETAL: No joint swelling or deformity. EXTREMITIES: No cyanosis, clubbing, or pedal edema. NEUROLOGICAL: Gross neurological examination did not reveal any focal deficits. SKIN: No rashes. - Labs CBC & Chem 7: 11/29/18 07:01 11/29/18 07:01 Labs: Abnormal Lab Results - Last 24 Hours (Table) 11/29/18 11/29/18 11/29/18 Range/Units 07:01 07:01 07:09 MCV 104.6 H (80.0-100.0) fL Plt Count 95 L (150-450) k/uL Lymphocytes # 0.9 L (1.0-4.8) k/uL Chloride 108 H (98-107) mmol/L Glucose 138 H (74-99) mg/dL POC Glucose (mg/dL) (75-99) mg/dL Ferritin 957.9 H (10.0-291.0) ng/mL Total Bilirubin 1.4 H (0.2-1.3) mg/dL AST 493 H (14-36) U/L ALT 450 H (9-52) U/L Alkaline Phosphatase 238 H (38-126) U/L Total Protein 5.4 L (6.3-8.2) g/dL Total Protein (PEP) 5.2 L (6.2-8.2) g/dL Albumin 3.2 L (3.5-5.0) g/dL Lipase 402 H (23-300) U/L 11/29/18 Range/Units 20:53 MCV (80.0-100.0) fL Plt Count (150-450) k/uL Lymphocytes # (1.0-4.8) k/uL Chloride (98-107) mmol/L Glucose (74-99) mg/dL POC Glucose (mg/dL) 166 H (75-99) mg/dL Ferritin (10.0-291.0) ng/mL Total Bilirubin (0.2-1.3) mg/dL AST (14-36) U/L ALT (9-52) U/L Alkaline Phosphatase (38-126) U/L Total Protein (6.3-8.2) g/dL Total Protein (PEP) (6.2-8.2) g/dL Albumin (3.5-5.0) g/dL Lipase (23-300) U/L Assessment and Plan Assessment: Acute Cholecystitis with elevated liver enzymes Acute Pancreatitis liver masses x2 liver cirrhosis Chronic kidney disease, stage III. Patient got intravenous contrast and 11/27/2018 History of pulmonary embolism on Coumadin Essential hypertension Hyperlipidemia Diabetes mellitus Plan: This is a pleasant 6 years old female who presents with possible acute cholecystitis and elevated lipase. Keep patient nothing by mouth, continue with IV fluids, pain management. Call surgical consult. Appreciate input from nephrology and cardiology team.Surgical team has already been consulted. Labs and medication were reviewed. Continue same treatment. Continue with symptomatic treatment. Resume home medication. Monitor lytes and vitals. DVT and GI prophylaxis. Further recommendations of the clinical course of the patient DVT prophylaxis: Subcutaneous heparin GI Prophylaxis: Pepcid Prognosis is guarded
[2018-11-30] MEDS: SODIUM CHLORIDE 0.9% 1,000 ML IV SCH ×2 (01:48→12:54)
[2018-11-30 06:26] LABS: Glucose,Whole Blood 84 mg/dL (75-99)
[2018-11-30 07:54] LABS: Basophils % (A) 0 %; Eosinophils # (A) 0.1 k/uL (0-0.7); Eosinophils % (A) 2 %; HGB 11.9 gm/dL (11.4-16.0); Lymphocytes # (A) 1.2 k/uL (1.0-4.8); Lymphocytes % (A) 25 %; MCH 32.5 pg (25.0-35.0); MCHC 30.6 g/dL (31.0-37.0); MCV 106.1 fL (80.0-100.0); Macrocytosis Moderate; Mean Platelet Volume 9.8; Monocytes # (A) 0.3 k/uL (0-1.0); Monocytes % (A) 7 %; Neutrophils % (A) 64 %; RBC 3.68 m/uL (3.80-5.40); RDW 13.5 % (11.5-15.5); WBC 4.6 k/uL (3.8-10.6)
[2018-11-30 08:00] LABS: Albumin 2.8 g/dL (3.5-5.0); Potassium 3.9 mmol/L (3.5-5.1); Total Bilirubin 0.9 mg/dL (0.2-1.3)
[2018-11-30 08:24] LABS: Platelet Count 88 k/uL (150-450)
[2018-11-30] MEDS: amLODIPine 5 MG TAB PO SCH (08:49)
[2018-11-30] MEDS: LISINOPRIL 20 MG TAB PO SCH (08:49)
[2018-11-30] MEDS: EZETIMIBE 10 MG TAB PO SCH (08:49)
[2018-11-30] MEDS: metFORMIN 500 MG TAB PO SCH ×3 (08:49→21:11)
[2018-11-30] MEDS: ATORVASTATIN 80 MG TAB PO SCH (08:50)
[2018-11-30] MEDS: FAMOTIDINE 20 MG/2 ML VIAL IV SCH (08:50)
[2018-11-30] MEDS: METOPROLOL TARTRATE 50 MG TAB PO SCH (08:50)
[2018-11-30] MEDS: ASPIRIN 81 MG PO SCH (08:50)
[2018-11-30] MEDS: HEPARIN SODIUM,PORCINE 5,000 UNIT/ML 1 ML VIAL SQ SCH ×2 (08:58→17:11)
--- NOTE | 2018-11-30 09:58 | PN ---
PROGRESS NOTE DATE OF DICTATION: November 30, 2018 Patient is an 78-year-old pleasant white female admitted to the hospital with epigastric pain and acute gallstone pancreatitis. She was noted to have elevated LFTs and bilirubin up to 2.4. LFTs are gradually improving. In fact, the bilirubin is down to 0.9 today. AST and ALT are 225 and 325 respectively. At the time of admission to the hospital, she had a CT of the abdomen and pelvis done that showed evidence of gallstones but also showed evidence of nodular cirrhosis of the liver with a 7 cm mass in the liver. MRI of the liver was scheduled, but because of overweight, this could not be performed. In the meantime, tumor markers were obtained. Alpha fetoprotein was reported as normal. At the time of admission, her lipase was more than 20,000 and today it is 448. This morning, she is feeling better. No abdominal pain. Wants to go home. She denies any new symptoms. PHYSICAL EXAMINATION: Appears comfortable in no apparent distress. Vital signs are stable. Blood pressure is 122/86, pulse rate is 961, temperature 98. HEENT examination unremarkable. Conjunctive pink. Sclerae anicteric. Oral cavity no lesions. NECK: No JVD or lymph node enlargement. Chest was clear to auscultation. HEART: Regular rate and rhythm. ABDOMEN: Soft, it was obese. Bowel sounds are positive. No organomegaly. EXTREMITIES: No pedal edema. SKIN no rashes. NEUROLOGIC: Alert and oriented x3. No focal deficits. LABS: From today WBC 4.6, hemoglobin 11.9, platelets 88,000, T-bilirubin 0.9, AST 234, ALT 325, alkaline phosphatase 201. Alpha fetoprotein less than 0.25. Lipase is 448 and amylase is 48. Hepatitis A, B, and C are negative. PRISCA is negative. IMPRESSION: 1. Acute gallstone pancreatitis, gradually improving, serum transaminases have significantly improved. Bilirubin has normalized. More than likely she has passed the CBD stone spontaneously. She is being followed by Dr. Le for possible cholecystectomy on an outpatient basis. 2. Liver cirrhosis on imaging studies in this patient who has no history of documented chronic liver disease. 3. Liver mass noted on CT of the abdomen that measured 7 cm in size. MRI was scheduled, but could not be done because of patient's body habitus. Alpha fetoprotein was less than 2.5. RECOMMENDATIONS: 1. Advance diet as tolerated. 2. Agree with scheduling the patient for an MRI on outpatient basis to delineate the liver lesion. 3. Since the patient is doing well she can be discharged home with outpatient follow up in a week and on outpatient basis. The plan was discussed with the patient, she is agreeable to it. Thank you for this consultation. YOBANY / LEDA: [id number] /
[2018-11-30 10:17] LABS: Ceruloplasmin 36.3 mg/dL (20.0-60.0)
--- NOTE | 2018-11-30 11:01 | P.PN ---
Subjective Progress Note Date: 11/30/18 CHIEF COMPLAINT: Cholecystitis with gallstones HISTORY OF PRESENT ILLNESS: The patient is a 78-year-old female who initially presented with acute onset chest pain/abdominal pain. Findings consistent with gallstones. Patient reports no abdominal pain at present. She has been off coumadin since admission. She is tolerating full liquid diet. ROS: No reports of nausea and vomiting. No fevers or chills. No new chest pain. No productive sputum PHYSICAL EXAM: VITAL SIGNS: Reviewed CONSTITUTIONAL: Well developed and in no acute distress. EYES: Conjuctivae without sclera icterus. Extraocular movements grossly intact. HEAD, EARS, NOSE, THROAT: Moist buccal mucosa. Head is atraumatic, normoceph alic. Hears conversational speech. No nasal drainage. NECK: Supple. No thyroidomegaly. RESPIRATORY: Non-labored respirations and equal bilateral excursions. CARDIOVASCULAR: Palpable 2+ radial pulses. ABDOMEN: Soft, nontender, obese. MUSCULOSKELETAL: No gross deformity of the lower extremities noted. No clubbing. No cyanosis. SKIN: Good skin turgor. Well perfused. NEUROLOGIC: Cranial nerves I through XII grossly intact. No focal or lateralizing signs. PSYCH: Appropriate affect. Alert and oriented to person, place and time. CLINCAL LABS: White blood cell count normal, LFTs elevated, lipase elevated ASSESSMENT: 1. Gallstone pancreatitis PLAN: 1. Anticipated cholecystectomy pending complete resolution of effects of coumadin. 2. Will need repeat coags. 3. Low-fat diet. Objective - Vital Signs Vital signs: Vital Signs Temp 97.8 F 11/30/18 08:00 Pulse 55 L 11/30/18 08:00 Resp 18 11/30/18 08:00 BP 145/80 11/30/18 08:00 Pulse Ox 96 11/30/18 04:00 Intake & Output 11/29/18 11/30/18 11/30/18 18:59 06:59 18:59 Intake Total 1000 500 Balance 1000 500 Weight 132.6 kg Intake: Intake, IV Titration 1000 Amount Sodium Chloride 0.9% 1, 1000 000 ml @ 75 mls/hr IV . [id number] [facility] Rx#:[id number] Oral 500 Other: Voiding Method Incontinent Incontinent Incontinent # Voids 2 1 - Labs CBC & Chem 7: 11/30/18 07:01 11/30/18 07:01 Labs: Abnormal Lab Results - Last 24 Hours (Table) 11/29/18 11/29/18 11/30/18 Range/Units 07:09 20:53 07:01 RBC (3.80-5.40) m/uL MCV (80.0-100.0) fL MCHC (31.0-37.0) g/dL Plt Count (150-450) k/uL Chloride 109 H (98-107) mmol/L POC Glucose (mg/dL) 166 H (75-99) mg/dL Ferritin 957.9 H (10.0-291.0) ng/mL AST 225 H (14-36) U/L ALT 325 H (9-52) U/L Alkaline Phosphatase 201 H (38-126) U/L Total Protein 5.0 L (6.3-8.2) g/dL Total Protein (PEP) 5.2 L (6.2-8.2) g/dL Albumin 2.8 L (3.5-5.0) g/dL Lipase 448 H (23-300) U/L 11/30/18 Range/Units 07:01 RBC 3.68 L (3.80-5.40) m/uL MCV 106.1 H (80.0-100.0) fL MCHC 30.6 L (31.0-37.0) g/dL Plt Count 88 L (150-450) k/uL Chloride (98-107) mmol/L POC Glucose (mg/dL) (75-99) mg/dL Ferritin (10.0-291.0) ng/mL AST (14-36) U/L ALT (9-52) U/L Alkaline Phosphatase (38-126) U/L Total Protein (6.3-8.2) g/dL Total Protein (PEP) (6.2-8.2) g/dL Albumin (3.5-5.0) g/dL Lipase (23-300) U/L Assessment and Plan (1) Chest pain Current Visit: Yes Status: Acute Code(s): R07.9 - CHEST PAIN, UNSPECIFIED SNOMED Code(s): 31571769 (2) Cholecystitis Current Visit: Yes Status: Acute Code(s): K81.9 - CHOLECYSTITIS, UNSPECIFIED SNOMED Code(s): 98809155 (3) Cholelithiases Current Visit: Yes Status: Acute Code(s): K80.20 - CALCULUS OF GALLBLADDER W/O CHOLECYSTITIS W/O OBSTRUCTION SNOMED Code(s): 369733602 (4) Elevated liver enzymes Current Visit: Yes Status: Acute Code(s): R74.8 - ABNORMAL LEVELS OF OTHER SERUM ENZYMES SNOMED Code(s): 490362462 (5) Pancreatitis Current Visit: Yes Status: Acute Code(s): K85.90 - ACUTE PANCREATITIS WITHOUT NECROSIS OR INFECTION, UNSP SNOMED Code(s): 21296593 (6) Warfarin-induced coagulopathy Current Visit: Yes Status: Acute Code(s): D68.32 - HEMORRHAGIC DISORD D/T EXTRINSIC CIRCULATING ANTICOAGULANTS; T45.515A - ADVERSE EFFECT OF ANTIC OAGULANTS, INITIAL ENCOUNTER SNOMED Code(s): 40206439
--- NOTE | 2018-11-30 11:35 | PN ---
PROGRESS NOTE This lady was admitted with what seems to be an acute pancreatitis related to gallstones. This has settled out. She is feeling well. Denies any abdominal pain. She has been seen by Gastroenterology and also Dr. Le. She will probably be discharged and will have surgery as an outpatient. There is no contraindication, but given her age, risk is higher than usual. I am recommending cautious fluid administration and optimal blood pressure control perioperatively. MMODL / IJN: [id number] /
[2018-11-30 12:17] LABS: Glucose,Whole Blood 126 mg/dL (75-99)
--- NOTE | 2018-11-30 12:58 | P.PN ---
Subjective This is a pleasant 48 years old female with past medical history of diabetes mellitus, hyperlipidemia, hypertension, pulmonary embolism on Coumadin. Patient presents because of epigastric pain and up in the chest to the lower neck. The pain is felt like pressure radiating to the back was pretty severe when she came in, currently she is pain free. No nausea vomiting, she had regular bowel movement yesterday. No dyspnea. No headache or syncope Patient Vitas looks stable, blood pressure 167/76. Heart rate in 50s. Labs reviewed and CBC is unremarkable, INR is 1.7, d-dimer is 1.7, creatinine 1.05. Liver enzymes markedly elevated at 478 and 277. Serial troponins are negative with less than 0.012. Elevated lipase more than 20,000. CAT scan of the abdomen with intravenous contrast showing gallstones and possible acute cholecystitis, cirrhosis of the liver. EKG showing normal sinus rhythm at [address]-T changes. Chest x-ray no acute process. 11/29/2018 pt is lying in bed , no more abd pain , no n/v today . surgery plan for outpt cholecystoctomy . Gi team input is appreciated , discussed the case today with lovely abel , work up is requested including MRI of the liver and afp for liver mass, serology work up for cirrhosis, and MRCP for biliarry pancreatitis, pt denies chest pain or dyspena ,she is hemodynmically stable 11/30/2018 Patient is feeling better. Diet been advanced gradually. She is tolerating that with no nausea vomiting. Her pain is better controlled, continue with pain medication. Coumadin still on hold for anticipating surgery for cholecystectomy. Cirrhosis and liver metastases and workup still pending. Including alpha-fetoprotein and MRI and serology. She still have some bradycardia. Liver enzymes elevated and we will keep trending down. Hepatitis panel is negative. Further workup still pending. Surgical and GI input is appreciated. Objective - Vital Signs Vital signs: Vital Signs Temp 97.8 F 11/30/18 08:00 Pulse 55 L 11/30/18 08:00 Resp 18 11/30/18 08:00 BP 145/80 11/30/18 08:00 Pulse Ox 96 11/30/18 04:00 Intake & Output 11/29/18 11/30/18 11/30/18 18:59 06:59 18:59 Intake Total 1000 500 Balance 1000 500 Weight 132.6 kg Intake: Intake, IV Titration 1000 Amount Sodium Chloride 0.9% 1, 1000 000 ml @ 75 mls/hr IV . [id number] [facility] Rx#:[id number] Oral 500 Other: Voiding Method Incontinent Incontinent Incontinent # Voids 2 1 - Exam GENERAL: The patient is alert and oriented x3, not in any acute distress. Well developed, well nourished. HEENT: Pupils are round and equally reacting to light. EOMI. No scleral icterus. No conjunctival pallor. Normocephalic, atraumatic. No pharyngeal erythema. No thyromegaly. CARDIOVASCULAR: S1 and S2 present. No murmurs, rubs, or gallops. PULMONARY: Chest is clear to auscultation, no wheezing or crackles. ABDOMEN: Soft, nontender, nondistended, normoactive bowel sounds. No palpable organomegaly. MUSCULOSKELETAL: No joint swelling or deformity. EXTREMITIES: No cyanosis, clubbing, or pedal edema. NEUROLOGICAL: Gross neurological examination did not reveal any focal deficits. SKIN: No rashes. - Labs CBC & Chem 7: 11/30/18 07:01 11/30/18 07:01 Labs: Abnormal Lab Results - Last 24 Hours (Table) 11/29/18 11/29/18 11/30/18 Range/Units 07:09 20:53 07:01 RBC (3.80-5.40) m/uL MCV (80.0-100.0) fL MCHC (31.0-37.0) g/dL Plt Count (150-450) k/uL Chloride 109 H (98-107) mmol/L POC Glucose (mg/dL) 166 H (75-99) mg/dL Ferritin 957.9 H (10.0-291.0) ng/mL AST 225 H (14-36) U/L ALT 325 H (9-52) U/L Alkaline Phosphatase 201 H (38-126) U/L Total Protein 5.0 L (6.3-8.2) g/dL Total Protein (PEP) 5.2 L (6.2-8.2) g/dL Albumin 2.8 L (3.5-5.0) g/dL Lipase 448 H (23-300) U/L 11/30/18 11/30/18 Range/Units 07:01 12:15 RBC 3.68 L (3.80-5.40) m/uL MCV 106.1 H (80.0-100.0) fL MCHC 30.6 L (31.0-37.0) g/dL Plt Count 88 L (150-450) k/uL Chloride (98-107) mmol/L POC Glucose (mg/dL) 126 H (75-99) mg/dL Ferritin (10.0-291.0) ng/mL AST (14-36) U/L ALT (9-52) U/L Alkaline Phosphatase (38-126) U/L Total Protein (6.3-8.2) g/dL Total Protein (PEP) (6.2-8.2) g/dL Albumin (3.5-5.0) g/dL Lipase (23-300) U/L Assessment and Plan Assessment: Acute Cholecystitis with elevated liver enzymes Acute Pancreatitis liver masses x2 liver cirrhosis Chronic kidney disease, stage III. Patient got intravenous contrast and 11/27/2018 History of pulmonary embolism on Coumadin Essential hypertension Hyperlipidemia Diabetes mellitus Plan: This is a pleasant 6 years old female who presents with possible acute cho lecystitis and elevated lipase. Keep patient nothing by mouth, continue with IV fluids, pain management. Call surgical consult. Appreciate input from nephrology and cardiology team.Surgical team has already been consulted. Labs and medication were reviewed. Continue same treatment. Continue with symptomatic treatment. Resume home medication. Monitor lytes and vitals. DVT and GI prophylaxis. Further recommendations of the clinical course of the patient DVT prophylaxis: Subcutaneous heparin GI Prophylaxis: Pepcid Prognosis is guarded
[2018-11-30 17:20] LABS: Glucose,Whole Blood 118 mg/dL (75-99)
[2018-11-30 20:34] LABS: Glucose,Whole Blood 141 mg/dL (75-99)
[2018-12-01] MEDS: HEPARIN SODIUM,PORCINE 5,000 UNIT/ML 1 ML VIAL SQ SCH ×3 (00:17→15:16)
[2018-12-01] MEDS: SODIUM CHLORIDE 0.9% 1,000 ML IV SCH (01:17)
[2018-12-01 07:15] LABS: Glucose,Whole Blood 101 mg/dL (75-99)
[2018-12-01] MEDS: FAMOTIDINE 20 MG/2 ML VIAL IV SCH (07:51)
[2018-12-01] MEDS: ASPIRIN 81 MG PO SCH (07:51)
[2018-12-01] MEDS: metFORMIN 500 MG TAB PO SCH ×2 (07:52→20:58)
[2018-12-01] MEDS: LISINOPRIL 20 MG TAB PO SCH (07:56)
[2018-12-01] MEDS: METOPROLOL TARTRATE 50 MG TAB PO SCH (07:56)
[2018-12-01] MEDS: EZETIMIBE 10 MG TAB PO SCH (07:56)
[2018-12-01] MEDS: amLODIPine 5 MG TAB PO SCH (07:56)
[2018-12-01] MEDS: ATORVASTATIN 80 MG TAB PO SCH (07:57)
[2018-12-01 08:03] LABS: Albumin 3.2 g/dL (3.5-5.0); Calcium 9.4 mg/dL (8.4-10.2); Potassium 4.2 mmol/L (3.5-5.1); Total Protein 5.4 g/dL (6.3-8.2)
[2018-12-01 08:14] LABS: INR 1.6 (<1.2); Prothrombin Time 15.8 sec (9.0-12.0)
--- NOTE | 2018-12-01 10:27 | PN ---
PROGRESS NOTE The patient is an 78-year-old pleasant white female admitted to the hospital with acute gallstone pancreatitis. She presented to the hospital with severe epigastric pain and chest pain, noted to have elevated lipase more than 20,000 at the time of admission to the hospital and with elevation of LFTs. She is doing much better today. Abdominal pain has resolved. No nausea, vomiting. PHYSICAL EXAMINATION: She appears comfortable. No apparent distress. Vital signs stable. Blood pressure is a 154/67, pulse is 62, temperature 97. HEENT examination. Conjunctivae pink. Sclerae anicteric. Oral cavity no lesions. Neck no JVD or lymph node enlargement. Chest was clear to auscultation. HEART: Regular rate and rhythm. ABDOMEN: Soft, it was nontender, nondistended. Bowel sounds are positive. Extremely obese. EXTREMITIES: No pedal edema. SKIN no rashes. NEUROLOGIC: Alert and oriented x3. No focal deficits. LABS: From today: T-bilirubin is normal. AST and ALT are 138 and 264 respectively, alkaline phosphatase 199, lipase is down to 327. INR is 1.6. IMPRESSION: 1. Acute gallstone pancreatitis with elevated LFTs, which have gradually improved. Lipase almost normalized. CT of the abdomen did show evidence of multiple gallstones. Nephrology following the patient closely. She is scheduled for laparoscopic cholecystectomy today. 2. CT of the abdomen that showed evidence of nodular liver suggestive of cirrhosis of the liver and a 7 cm mass. MRI of the liver was scheduled but could not be performed because of patient's body habitus. RECOMMENDATIONS: 1. Schedule for an MRI on outpatient basis to investigate this further. 2. Workup for liver cirrhosis. 3. Repeat labs in the morning. We will follow the patient during the hospital stay. Thank you for this consultation. MMODL / IJN: [id number] /
--- NOTE | 2018-12-01 11:22 | P.PN ---
Subjective Progress Note Date: 12/01/18 CHIEF COMPLAINT: Cholecystitis with gallstones HISTORY OF PRESENT ILLNESS: The patient is a 78-year-old female who initially presented with acute onset chest pain/abdominal pain secondary to gallstone pa ncreatitis. Her abdominal pain is completely resolved. She is tolerating full liquid diet. She reports moderate bruising from IV starts including heparin along the abdomen including skin. ROS: No reports of nausea and vomiting. No fevers or chills. No new chest pain. No productive sputum PHYSICAL EXAM: VITAL SIGNS: Reviewed CONSTITUTIONAL: Well developed and in no acute distress. EYES: Conjuctivae without sclera icterus. Extraocular movements grossly intact. HEAD, EARS, NOSE, THROAT: Moist buccal mucosa. Head is atraumatic, normocephalic. Hears conversational speech. No nasal drainage. NECK: Supple. No thyroidomegaly. RESPIRATORY: Non-labored respirations and equal bilateral excursions. CARDIOVASCULAR: Palpable 2+ radial pulses. ABDOMEN: Soft, nontender, obese. MUSCULOSKELETAL: No gross deformity of the lower extremities noted. No clubbing. No cyanosis. SKIN: Good skin turgor. Well perfused. NEUROLOGIC: Cranial nerves I through XII grossly intact. No focal or later alizing signs. PSYCH: Appropriate affect. Alert and oriented to person, place and time. CLINCAL LABS: White blood cell count normal, LFTs elevated, lipase elevated, PT/INR elevated ASSESSMENT: 1. Gallstone pancreatitis PLAN: 1. From a surgical standpoint, coags and liver enzymes too high. 2. No surgical during this admission planned. 3. Agreeable for discharge home with follow up with Dr. Le as outpatient. 4. Low fat diet advised. Objective - Vital Signs Vital signs: Vital Signs Temp 98.1 F 12/01/18 07:23 Pulse 68 12/01/18 07:23 Resp 12 12/01/18 07:23 BP 167/80 12/01/18 07:23 Pulse Ox 96 12/01/18 07:23 Intake & Output 11/30/18 12/01/18 12/01/18 18:59 06:59 18:59 Output Total 1 Balance -1 Output: Urine 1 Other: Voiding Method Toilet Toilet Toilet Incontinent Incontinent # Voids 1 2 - Labs CBC & Chem 7: 11/30/18 07:01 12/01/18 07:12 Labs: Abnormal Lab Results - Last 24 Hours (Table) 11/30/18 11/30/18 11/30/18 Range/Units 12:15 17:08 20:33 PT (9.0-12.0) sec INR (<1.2) Chloride (98-107) mmol/L POC Glucose (mg/dL) 126 H 118 H 141 H (75-99) mg/dL AST (14-36) U/L ALT (9-52) U/L Alkaline Phosphatase (38-126) U/L Total Protein (6.3-8.2) g/dL Albumin (3.5-5.0) g/dL Lipase (23-300) U/L 12/01/18 12/01/18 12/01/18 Range/Units 07:04 07:12 07:12 PT 15.8 H (9.0-12.0) sec INR 1.6 H (<1.2) Chloride 109 H (98-107) mmol/L POC Glucose (mg/dL) 101 H (75-99) mg/dL AST 138 H (14-36) U/L ALT 264 H (9-52) U/L Alkaline Phosphatase 199 H (38-126) U/L Total Protein 5.4 L (6.3-8.2) g/dL Albumin 3.2 L (3.5-5.0) g/dL Lipase 327 H (23-300) U/L Assessment and Plan (1) Chest pain Current Visit: Yes Status: Acute Code(s): R07.9 - CHEST PAIN, UNSPECIFIED SNOMED Code(s): 52610434 (2) Cholecystitis Current Visit: Yes Status: Acute Code(s): K81.9 - CHOLECYSTITIS, UNSPECIFIED SNOMED Code(s): 33816529 (3) Cholelithiases Current Visit: Yes Status: Acute Code(s): K80.20 - CALCULUS OF GALLBLADDER W/O CHOLECYSTITIS W/O OBSTRUCTION SNOMED Code(s): 938170289 (4) Elevated liver enzymes Current Visit: Yes Status: Acute Code(s): R74.8 - ABNORMAL LEVELS OF OTHER SERUM ENZYMES SNOMED Code(s): 653284939 (5) Pancreatitis Current Visit: Yes Status: Acute Code(s): K85.90 - ACUTE PANCREATITIS WITHOUT NECROSIS OR INFECTION, UNSP SNOMED Code(s): 29030948 (6) Warfarin-induced coagulopathy Current Visit: Yes Status: Acute Code(s): D68.32 - HEMORRHAGIC DISORD D/T EXTRINSIC CIRCULATING ANTICOAGULANTS; T45.515A - ADVERSE EFFECT OF ANTICOAGULANTS, INITIAL ENCOUNTER SNOMED Code(s): 38078561
[2018-12-01 11:36] LABS: Glucose,Whole Blood 101 mg/dL (75-99)
--- NOTE | 2018-12-01 12:45 | P.PN ---
Subjective This is a pleasant 48 years old female with past medical history of diabetes mellitus, hyperlipidemia, hypertension, pulmonary embolism on Coumadin. Patient presents because of epigastric pain and up in the chest to the lower neck. The pain is felt like pressure radiating to the back was pretty severe when she came in, currently she is pain free. No nausea vomiting, she had regular bowel movement yesterday. No dyspnea. No headache or syncope Patient Vitas looks stable, blood pressure 167/76. Heart rate in 50s. Labs reviewed and CBC is unremarkable, INR is 1.7, d-dimer is 1.7, creatinine 1.05. Liver enzymes markedly elevated at 478 and 277. Serial troponins are negative with less than 0.012. Elevated lipase more than 20,000. CAT scan of the abdomen with intravenous contrast showing gallstones and possible acute cholecystitis, cirrhosis of the liver. EKG showing normal sinus rhythm at [address]-T changes. Chest x-ray no acute process. 11/29/2018 pt is lying in bed , no more abd pain , no n/v today . surgery plan for outpt cholecystoctomy . Gi team input is appreciated , discussed the case today with lovely abel , work up is requested including MRI of the liver and afp for liver mass, serology work up for cirrhosis, and MRCP for biliarry pancreatitis, pt denies chest pain or dyspena ,she is hemodynmically stable 11/30/2018 Patient is feeling better. Diet been advanced gradually. She is tolerating that with no nausea vomiting. Her pain is better controlled, continue with pain medication. Coumadin still on hold for anticipating surgery for cholecystectomy. Cirrhosis and liver metastases and workup still pending. Including alpha-fetoprotein and MRI and serology. She still have some bradycardia. Liver enzymes elevated and we will keep trending down. Hepatitis panel is negative. Further workup still pending. Surgical and GI input is appreciated. 12/01/2018 Patient is an clear liquid diet with no nausea vomiting or abdominal pain. I discussed the case with Dr. Araiza from surgery today, no plans for inpatient surgical intervention and given her INR still on the high side at 1.6 and liver enzymes still elevated although they are trending down. Patient also reports that she bruises easily and she has several ecchymosis in her upper extremities. Patient could not fit into the MRI machine which can be done as an outpatient. Serology blood tests ordered by the GI team is still pending and patient can follow up with [employer] [facility] consultant and outpatient were already she has an a ppointment. Patient coumadine is still on hold, given the above we will request table keeper evaluation. We can advance diet as tolerated. Objective - Vital Signs Vital signs: Vital Signs Temp 98.1 F 12/01/18 07:23 Pulse 68 12/01/18 07:23 Resp 12 12/01/18 07:23 BP 167/80 12/01/18 07:23 Pulse Ox 96 12/01/18 07:23 Intake & Output 11/30/18 12/01/18 12/01/18 18:59 06:59 18:59 Output Total 1 Balance -1 Output: Urine 1 Other: Voiding Method Toilet Toilet Toilet Incontinent Incontinent # Voids 1 2 - Exam GENERAL: The patient is alert and oriented x3, not in any acute distress. Well developed, well nourished. HEENT: Pupils are round and equally reacting to light. EOMI. No scleral icterus. No conjunctival pallor. Normocephalic, atraumatic. No pharyngeal erythema. No thyromegaly. CARDIOVASCULAR: S1 and S2 present. No murmurs, rubs, or gallops. PULMONARY: Chest is clear to auscultation, no wheezing or crackles. ABDOMEN: Soft, nontender, nondistended, normoactive bowel sounds. No palpable organomegaly. MUSCULOSKELETAL: No joint swelling or deformity. EXTREMITIES: No cyanosis, clubbing, or pedal edema. NEUROLOGICAL: Gross neurological examination did not reveal any focal deficits. -SKIN: No rashes. Several bruises on the both upper arms and forearms - Labs CBC & Chem 7: 11/30/18 07:01 12/01/18 07:12 Labs: Abnormal Lab Results - Last 24 Hours (Table) 11/30/18 11/30/18 12/01/18 Range/Units 17:08 20:33 07:04 PT (9.0-12.0) sec INR (<1.2) Chloride (98-107) mmol/L POC Glucose (mg/dL) 118 H 141 H 101 H (75-99) mg/dL AST (14-36) U/L ALT (9-52) U/L Alkaline Phosphatase (38-126) U/L Total Protein (6.3-8.2) g/dL Albumin (3.5-5.0) g/dL Lipase (23-300) U/L 12/01/18 12/01/18 12/01/18 Range/Units 07:12 07:12 11:25 PT 15.8 H (9.0-12.0) sec INR 1.6 H (<1.2) Chloride 109 H (98-107) mmol/L POC Glucose (mg/dL) 101 H (75-99) mg/dL AST 138 H (14-36) U/L ALT 264 H (9-52) U/L Alkaline Phosphatase 199 H (38-126) U/L Total Protein 5.4 L (6.3-8.2) g/dL Albumin 3.2 L (3.5-5.0) g/dL Lipase 327 H (23-300) U/L Assessment and Plan Assessment: Acute Cholecystitis with elevated liver enzymes. Improving. Resolving Acute Pancreatitis liver masses x2. Need outpatient follow-up liver cirrhosis. No diagnosis Bilateral upper extremity bruising and possible coagulopathy Chronic kidney disease, stage III. Patient got intravenous contrast and 11/27/2018 History of pulmonary embolism on Coumadin Essential hypertension Hyperlipidemia Diabetes mellitus Plan: This is a pleasant 6 years old female who presents with possible acute cholecystitis and elevated lipase. Advance diet as tolerated, pain management. Call surgical consult and follow-up is appreciated. GI input is appreciated as well and the cleared the patient.. We'll ask for hematology consult. Labs and medication were reviewed. Continue same treatment. Continue with symptomatic treatment. Resume home medication. Monitor lytes and vitals. DVT and GI prophylaxis. Further recommendations of the clinical course of the patient DVT prophylaxis: Subcutaneous heparin GI Prophylaxis: Pepcid Prognosis is guarded Patient is still needs monitoring for her proposed, hematology consult for her coagulopathy and the need for anticoagulation. And advancing diet Possible discharge in 24-48 hours if patient keeps improving
--- NOTE | 2018-12-01 21:19 | P.PN ---
Progress Note - Text Progress Note Date: 12/01/18 Full Hematology consult to follow. Pt is 78yo with multiple comorbidities, here for epigastric pain with transaminitis and pancreatitis. Abdominal imaging shows cirrhosis and acute cholecystitis. She was on warfarin prior to admission for history of PE. We are called as her coagulopathy persists. Coagulopathy due to underlying cirrhosis. No overt bleeding and Hgb stable. It does not appear that surgery is planned at this time. For now, recommend supportive care, pRBC/plt/FFP for cytopenia/bleeding. Continue to hold warfarin. Will evaluate pt in am and provide final rec's. Thank you for your consult.
[2018-12-01 21:57] LABS: Glucose,Whole Blood 114 mg/dL (75-99)
[2018-12-02] MEDS: HEPARIN SODIUM,PORCINE 5,000 UNIT/ML 1 ML VIAL SQ SCH ×2 (00:30→09:58)
[2018-12-02] MEDS: SODIUM CHLORIDE 0.9% 1,000 ML IV SCH (01:21)
[2018-12-02 07:09] LABS: Glucose,Whole Blood 105 mg/dL (75-99)
[2018-12-02 09:32] LABS: HCT 40.1 % (34.0-46.0); HGB 12.9 gm/dL (11.4-16.0); MCHC 32.1 g/dL (31.0-37.0); MCV 102.8 fL (80.0-100.0); Macrocytosis Slight; Mean Platelet Volume 10.6; RDW 14.5 % (11.5-15.5); WBC 4.6 k/uL (3.8-10.6)
[2018-12-02 09:36] LABS: Platelet Count 92 k/uL (150-450)
[2018-12-02 09:40] LABS: Calcium 9.4 mg/dL (8.4-10.2); Total Protein 5.2 g/dL (6.3-8.2)
[2018-12-02 09:47] LABS: INR 1.4 (<1.2)
[2018-12-02 09:51] LABS: Partial Thromboplastin Time 21.2 sec (22.0-30.0)
[2018-12-02] MEDS: EZETIMIBE 10 MG TAB PO SCH (10:03)
[2018-12-02] MEDS: FAMOTIDINE 20 MG/2 ML VIAL IV SCH (10:04)
[2018-12-02] MEDS: metFORMIN 500 MG TAB PO SCH ×2 (10:04→21:36)
[2018-12-02] MEDS: amLODIPine 5 MG TAB PO SCH (10:04)
[2018-12-02] MEDS: METOPROLOL TARTRATE 50 MG TAB PO SCH (10:04)
[2018-12-02] MEDS: ATORVASTATIN 80 MG TAB PO SCH (10:04)
[2018-12-02] MEDS: ASPIRIN 81 MG PO SCH (10:05)
[2018-12-02] MEDS: LISINOPRIL 20 MG TAB PO SCH (10:05)
[2018-12-02 11:27] LABS: Glucose,Whole Blood 135 mg/dL (75-99)
--- NOTE | 2018-12-02 12:04 | P.PN ---
<Chana Sin Suma - Last Filed: 12/02/18 12:00> Subjective Progress Note Date: 12/02/18 CHIEF COMPLAINT: Abdominal pain HISTORY OF PRESENT ILLNESS: Patient examined this morning at the bedside. Patient denies abdominal pain. Tolerating full liquid diet. Denies nausea or vomiting. W BC 4.6. Total bilirubin 1.0. AST 83. ALT 179. PHYSICAL EXAM: VITAL SIGNS: Reviewed. GENERAL: Well-developed in no acute distress. HEENT: No sclera icterus. Extraocular movements grossly intact. Moist buccal mucosa. Head is atraumatic, normocephalic. ABDOMEN: Soft. Nondistended. Nontender. Positive bowel sounds. NEUROLOGIC: Alert and oriented. Cranial nerves II through XII grossly intact. ASSESSMENT: 1. Epigastric pain with radiation to back 2. Acute pancreatitis 3. Possible acute cholecystitis 4. Cholelithiasis 5. Elevated bilirubin 6. Transaminitis 7. Hepatic lesions 8. Hypercalcemia with possible parathyroid adenoma PLAN: 1. Advance diet to low fat 2. Hematology consulted for coagulopathy. Okay to resume anticoagulation from a surgical standpoint. Will defer to hematology 3. Patient is stable from a surgical perspective. Patient to follow-up with Dr. Le outpatient to further discuss cholecystectomy. Nurse practitioner note has been reviewed by physician. Signing provider agrees with the documented findings, assessment, and plan of care. Objective - Vital Signs Vital signs: Vital Signs Temp 97.4 F L 12/02/18 07:00 Pulse 82 12/02/18 07:00 Resp 16 12/02/18 07:00 BP 153/91 12/02/18 07:00 Pulse Ox 95 12/02/18 07:00 Intake & Output 12/01/18 12/02/18 12/02/18 18:59 06:59 18:59 Intake Total 520 45 294 Balance 520 45 294 Intake: Oral 520 45 294 Other: Voiding Method Toilet Toilet # Voids 1 - Labs CBC & Chem 7: 12/02/18 08:22 12/02/18 08:22 Labs: Abnormal Lab Results - Last 24 Hours (Table) 12/01/18 12/02/18 12/02/18 Range/Units 21:46 06:57 08:22 MCV (80.0-100.0) fL Plt Count (150-450) k/uL PT (9.0-12.0) sec INR (<1.2) APTT (22.0-30.0) sec Chloride 108 H (98-107) mmol/L Glucose 164 H (74-99) mg/dL POC Glucose (mg/dL) 114 H 105 H (75-99) mg/dL AST 83 H (14-36) U/L ALT 179 H (9-52) U/L Alkaline Phosphatase 164 H (38-126) U/L Total Protein 5.2 L (6.3-8.2) g/dL Albumin 3.0 L (3.5-5.0) g/dL 12/02/18 12/02/18 12/02/18 Range/Units 08:22 08:22 11:15 MCV 102.8 H (80.0-100.0) fL Plt Count 92 L (150-450) k/uL PT 14.0 H (9.0-12.0) sec INR 1.4 H (<1.2) APTT 21.2 L (22.0-30.0) sec Chloride (98-107) mmol/L Glucose (74-99) mg/dL POC Glucose (mg/dL) 135 H (75-99) mg/dL AST (14-36) U/L ALT (9-52) U/L Alkaline Phosphatase (38-126) U/L Total Protein (6.3-8.2) g/dL Albumin (3.5-5.0) g/dL Assessment and Plan (1) Cholecystitis Current Visit: Yes Status: Acute Code(s): K81.9 - CHOLECYSTITIS, UNSPECIFIED SNOMED Code(s): 56085381 (2) Cholelithiases Current Visit: Yes Status: Acute Code(s): K80.20 - CALCULUS OF GALLBLADDER W/O CHOLECYSTITIS W/O OBSTRUCTION SNOMED Code(s): 816706733 (3) Elevated liver enzymes Current Visit: Yes Status: Acute Code(s): R74.8 - ABNORMAL LEVELS OF OTHER SERUM ENZYMES SNOMED Code(s): 361501408 (4) Pancreatitis Current Visit: Yes Status: Acute Code(s): K85.90 - ACUTE PANCREATITIS WITHOUT NECROSIS OR INFECTION, UNSP SNOMED Code(s): 27872451 (5) Warfarin-induced coagulopathy Current Visit: Yes Status: Acute Code(s): D68.32 - HEMORRHAGIC DISORD D/T EXTRINSIC CIRCULATING ANTICOAGULANTS; T45.515A - ADVERSE EFFECT OF AN TICOAGULANTS, INITIAL ENCOUNTER SNOMED Code(s): 26059895 <Brinda Araiza N - Last Filed: 12/02/18 19:28> Subjective ROS: No reports of nausea and vomiting. No fevers or chills. No new chest pain. No productive sputum PHYSICAL EXAM: VITAL SIGNS: Reviewed CONSTITUTIONAL: Well developed and in no acute distress. EYES: Conjuctivae without sclera icterus. Extraocular movements grossly intact. HEAD, EARS, NOSE, THROAT: Moist buccal mucosa. Head is atraumatic, normocephalic. Hears conversational speech. No nasal drainage. NECK: Supple. No thyroidomegaly. RESPIRATORY: Non-labored respirations and equal bilateral excursions. CARDIOVASCULAR: Palpable 2+ radial pulses. ABDOMEN: Soft, nontender, obese. MUSCULOSKELETAL: No gross deformity of the lower extremities noted. No clubbing. No cyanosis. SKIN: Good skin turgor. Well perfused. NEUROLOGIC: Cranial nerves I through XII grossly intact. No focal or lateralizing signs. PSYCH: Appropriate affect. Alert and oriented to person, place and time. May discharge home from surgical standpoint. Objective - Vital Signs Vital signs: Vital Signs Temp 97.4 F L 12/02/18 15:00 Pulse 66 12/02/18 15:00 Resp 16 12/02/18 15:00 BP 143/77 12/02/18 15:00 Pulse Ox 96 12/02/18 15:00 Intake & Output 12/02/18 12/02/18 12/03/18 06:59 18:59 06:59 Intake Total 45 652 Balance 45 652 Weight 130.2 kg Intake: Oral 45 652 Other: Voiding Method Toilet # Voids 1 1 - Labs CBC & Chem 7: 12/02/18 08:22 12/02/18 08:22 Labs: Abnormal Lab Results - Last 24 Hours (Table) 11/29/18 12/01/18 12/02/18 Range/Units 07:09 21:46 06:57 MCV (80.0-100.0) fL Plt Count (150-450) k/uL PT (9.0-12.0) sec INR (<1.2) APTT (22.0-30.0) sec Chloride (98-107) mmol/L Glucose (74-99) mg/dL POC Glucose (mg/dL) 114 H 105 H (75-99) mg/dL AST (14-36) U/L ALT (9-52) U/L Alkaline Phosphatase (38-126) U/L Total Protein (6.3-8.2) g/dL Albumin (3.5-5.0) g/dL Albumin (PEP) 3.07 L (3.80-4.90) g/dL Beta Globulins 0.54 L (0.60-1.30) g/dL Gamma Globulins 0.49 L (0.70-1.50) g/dL 12/02/18 12/02/18 12/02/18 Range/Units 08:22 08:22 08:22 MCV 102.8 H (80.0-100.0) fL Plt Count 92 L (150-450) k/uL PT 14.0 H (9.0-12.0) sec INR 1.4 H (<1.2) APTT 21.2 L (22.0-30.0) sec Chloride 108 H (98-107) mmol/L Glucose 164 H (74-99) mg/dL POC Glucose (mg/dL) (75-99) mg/dL AST 83 H (14-36) U/L ALT 179 H (9-52) U/L Alkaline Phosphatase 164 H (38-126) U/L Total Protein 5.2 L (6.3-8.2) g/dL Albumin 3.0 L (3.5-5.0) g/dL Albumin (PEP) (3.80-4.90) g/dL Beta Globulins (0.60-1.30) g/dL Gamma Globulins (0.70-1.50) g/dL 12/02/18 12/02/18 Range/Units 11:15 16:21 MCV (80.0-100.0) fL Plt Count (150-450) k/uL PT (9.0-12.0) sec INR (<1.2) APTT (22.0-30.0) sec Chloride (98-107) mmol/L Glucose (74-99) mg/dL POC Glucose (mg/dL) 135 H 126 H (75-99) mg/dL AST (14-36) U/L ALT (9-52) U/L Alkaline Phosphatase (38-126) U/L Total Protein (6.3-8.2) g/dL Albumin (3.5-5.0) g/dL Albumin (PEP) (3.80-4.90) g/dL Beta Globulins (0.60-1.30) g/dL Gamma Globulins (0.70-1.50) g/dL Assessment and Plan (1) Chest pain Current Visit: Yes Status: Acute Code(s): R07.9 - CHEST PAIN, UNSPECIFIED SNOMED Code(s): 46212796 (2) Cholecystitis Current Visit: Yes Status: Acute Code(s): K81.9 - CHOLECYSTITIS, UNSPECIFIED SNOMED Code(s): 71573435 (3) Cholelithiases Current Visit: Yes Status: Acute Code(s): K80.20 - CALCULUS OF GALLBLADDER W/O CHOLECYSTITIS W/O OBSTRUCTION SNOMED Code(s): 447415699 (4) Elevated liver enzymes Current Visit: Yes Status: Acute Code(s): R74.8 - ABNORMAL LEVELS OF OTHER SERUM ENZYMES SNOMED Code(s): 073047027 (5) Pancreatitis Current Visit: Yes Status: Acute Code(s): K85.90 - ACUTE PANCREATITIS WITHOUT NECROSIS OR INFECTION, UNSP SNOMED Code(s): 29737746 (6) Warfarin-induced coagulopathy Current Visit: Yes Status: Acute Code(s): D68.32 - HEMORRHAGIC DISORD D/T EXTRINSIC CIRCULATING ANTICOAGULANTS; T45.515A - ADVERSE EFFECT OF ANTICOAGULANTS, INITIAL ENCOUNTER SNOMED Code(s): 38301812
--- NOTE | 2018-12-02 12:15 | P.PN ---
Subjective Progress Note Date: 12/02/18 Principal diagnosis: Biliary pancreatitis liver mass possible cirrhosis No surgical intervention plan. Feels well. Outpatient MRI scheduled per GI office. Objective - Vital Signs Vital signs: Vital Signs Temp 97.4 F L 12/02/18 07:00 Pulse 82 12/02/18 07:00 Resp 16 12/02/18 07:00 BP 153/91 12/02/18 07:00 Pulse Ox 95 12/02/18 07:00 Intake & Output 12/01/18 12/02/18 12/02/18 18:59 06:59 18:59 Intake Total 520 45 294 Balance 520 45 294 Intake: Oral 520 45 294 Other: Voiding Method Toilet Toilet # Voids 1 - Exam General appearance: The patient is alert, oriented, in no acute distress. HET: Head is normocephalic and atraumatic. Pupils are equal and reactive. Oropharynx is clear without lesions. Neck: Supple without lymphadenopathy. Trachea midline. Heart: S1 S2. Regular rate and rhythm. Lungs: No crackles or wheezes are heard. Abdomen: Soft, nontender, nondistended with bowel sounds. No peritoneal signs. No palpable organomegaly or masses. Extremities: Normal skin color and turgor. No cyanosis, rash, ulceration, clubbing, or edema. Radial and pedal pulses are 2/4 bilaterally. Neurological: No focal deficits. Strength and sensation are grossly intact. - Labs CBC & Chem 7: 12/02/18 08:22 12/02/18 08:22 Labs: Abnormal Lab Results - Last 24 Hours (Table) 12/01/18 12/02/18 12/02/18 Range/Units 21:46 06:57 08:22 MCV (80.0-100.0) fL Plt Count (150-450) k/uL PT (9.0-12.0) sec INR (<1.2) APTT (22.0-30.0) sec Chloride 108 H (98-107) mmol/L Glucose 164 H (74-99) mg/dL POC Glucose (mg/dL) 114 H 105 H (75-99) mg/dL AST 83 H (14-36) U/L ALT 179 H (9-52) U/L Alkaline Phosphatase 164 H (38-126) U/L Total Protein 5.2 L (6.3-8.2) g/dL Albumin 3.0 L (3.5-5.0) g/dL 12/02/18 12/02/18 12/02/18 Range/Units 08:22 08:22 11:15 MCV 102.8 H (80.0-100.0) fL Plt Count 92 L (150-450) k/uL PT 14.0 H (9.0-12.0) sec INR 1.4 H (<1.2) APTT 21.2 L (22.0-30.0) sec Chloride (98-107) mmol/L Glucose (74-99) mg/dL POC Glucose (mg/dL) 135 H (75-99) mg/dL AST (14-36) U/L ALT (9-52) U/L Alkaline Phosphatase (38-126) U/L Total Protein (6.3-8.2) g/dL Albumin (3.5-5.0) g/dL Assessment and Plan (1) Pancreatitis Narrative/Plan: 78-year-old female admitted with elevated pancreatic and liver enzymes with 1 month history of intermittent upper abdominal pain without fever chills hematemesis hematochezia melena. Abdominal imaging reported multiple gallstones as well as a lobular cirrhotic liver with hepatic masses. Clinically suspect an acute biliary pancreatitis however underlying proposed nonalcoholic chronic liver disease cirrhosis within the differential possible underlying hepatic malignancy versus possible early phlegmon cannot be excluded. Current Visit: Yes Status: Acute Code(s): K85.90 - ACUTE PANCREATITIS WITHOUT NECROSIS OR INFECTION, UNSP SNOMED Code(s): 80873711 (2) Cholelithiases Current Visit: Yes Status: Acute Code(s): K80.20 - CALCULUS OF GALLBLADDER W/O CHOLECYSTITIS W/O OBSTRUCTION SNOMED Code(s): 875742986 (3) Elevated liver enzymes Current Visit: Yes Status: Acute Code(s): R74.8 - ABNORMAL LEVELS OF OTHER SERUM ENZYMES SNOMED Code(s): 155179893 (4) Morbid obesity with BMI of 50.0-59.9, adult Current Visit: Yes Status: Acute Code(s): E66.01 - MORBID (SEVERE) OBESITY DUE TO EXCESS CALORIES; Z68.43 - BODY MASS INDEX (BMI) 50-59.9, ADULT SNOMED Code(s): 592697721 (5) Elevated parathyroid hormone Narrative/Plan: Parathyroid scan reported possible adenoma Current Visit: Yes Status: Acute Code(s): E34.9 - ENDOCRINE DISORDER, UNSPECIFIED SNOMED Code(s): 4277110 (6) Warfarin-induced coagulopathy Current Visit: Yes Status: Acute Code(s): D68.32 - HEMORRHAGIC DISORD D/T EXTRINSIC CIRCULATING ANTICOAGULANTS; T45.515A - ADVERSE EFFECT OF ANTICOAGULANTS, INITIAL ENCOUNTER SNOMED Code(s): 56629062 Plan: 1. Agreeable for discharge. Follow up in GI office in 2 weeks. Outpatient MRI liver/MRCP scheduled through GI office. Assessment and plan a care discussed with Dr. Mcfarlane
[2018-12-02 12:52] LABS: Albumin 3.07 g/dL (3.80-4.90); Gamma Globulin 0.49 g/dL (0.70-1.50)
[2018-12-02 13:30] LABS: Liver/Kidney Microsome Antibod 1.1 UNITS (<=20)
[2018-12-02] MEDS ORDERED: ACETAMINOPHEN TAB 325 MG TAB PO PRN (14:15)
[2018-12-02] MEDS: CAPSAICIN 0.025% CREAM 60 GM TUBE TOPICAL SCH ×2 (16:19→22:30)
[2018-12-02 16:32] LABS: Glucose,Whole Blood 126 mg/dL (75-99)
--- NOTE | 2018-12-02 17:08 | P.CONS ---
History of Present Illness - Reason for Consult Consult date: 12/02/18 Coagulopathy on Warfarin Requesting physician: Wiliam E Hussein - Chief Complaint Acute Cholecystitis - History of Present Illness Ms. Mathur is a patient of Dr. Wilcox on Life long anticoagulation for unprovoked Pulmonary emboli in 2009. Recently with complains of abdominal pain and diarrhea and presented to [facility]. Plan was to hold her anticoagualtion and set her up for cholecystectomy although her coags are remaining elevated despite no anticoagulation. This is likely secondary to edema caused from underlying gallstones, acute cholecystitis or other underlying liver etiology. We have been asked to consult as the plan is to discharge home and plan for outpatient surgery. Review of Systems 14 point review of systems assessed and completed in all negative except for HPI Past Medical History Past Medical History: Chest Pain / Angina, Diabetes Mellitus, Hyperlipidemia, Hypertension, Pulmonary Embolus (PE), Renal Disease History of Any Multi-Drug Resistant Organisms: None Reported Additional Past Surgical History / Comment(s): ovarian cyst surgery 1957 Past Anesthesia/Blood Transfusion Reactions: No Reported Reaction Smoking Status: Never smoker Past Alcohol Use History: None Reported Past Drug Use History: None Reported Medications and Allergies Home Medications Medication Instructions Recorded Confirmed Type Allopurinol [Zyloprim] 100 mg PO DAILY 11/27/18 11/27/18 History Ezetimibe [Zetia] 10 mg PO DAILY 11/27/18 11/27/18 History Metoprolol Succinate [Toprol XL] 200 mg PO DAILY 11/27/18 11/27/18 History Montelukast [Singulair] 10 mg PO HS 11/27/18 11/27/18 History Niacin [Niaspan] 1,000 mg PO HS 11/27/18 11/27/18 History Ramipril 20 mg PO DAILY 11/27/18 11/27/18 History Verapamil HCl [Verapamil ER] 240 mg PO DAILY 11/27/18 11/27/18 History Warfarin [Coumadin] 3 mg PO HS 11/27/18 11/27/18 History metFORMIN HCL ER [Glucophage Xr] 500 mg PO DAILY 11/27/18 11/27/18 History Allergies Allergy/AdvReac Type Severity Reaction Status Date / Time Iodinated Contrast- Oral and Allergy Itching Verified 11/27/18 20:51 IV Dye [Iodinated Contrast Media - IV Dye] morphine Allergy Itching Verified 11/27/18 20:51 Physical Exam Vitals: Vital Signs Temp Pulse Resp BP Pulse Ox 12/02/18 15:00 97.4 F L 66 16 143/77 96 12/02/18 07:00 97.4 F L 82 16 153/91 95 12/02/18 01:15 98.5 F 71 18 152/77 97 12/01/18 19:15 97.6 F 70 18 152/78 97 Intake and Output 12/02/18 12/02/18 12/02/18 06:59 14:59 22:59 Intake Total 412 Balance 412 Intake: Oral 412 Other: Voiding Method Toilet # Voids 1 1 Weight 130.2 kg General: Alert and Oriented x3, No Acute Distress Head: Normocytic, Atraumatic Neck: Supple Mouth: No Lesions, No Thrush Eyes: Non-sclerotic No Palpable cervical, supraclavicular, axillary adenopathy Heart: Regular Rate, Regular Rhythm Lungs: Clear to Ausculations, No Wheeze, No Rhonchi, Diminishe bilateral lower lobes, No increased respiratory effort noted Abdomen: Soft, Non-Distended, Non-Tended, BSx4 Extremities: No Edema, Equal Strength Neurological: No Focal Defects: No sensory or motor deficits noted Psych: Calm and cooperative Results CBC & Chem 7: 12/02/18 08:22 12/02/18 08:22 Labs: Abnormal Lab Results - Last 24 Hours (Table) 11/29/18 12/01/18 12/02/18 Range/Units 07:09 21:46 06:57 MCV (80.0-100.0) fL Plt Count (150-450) k/uL PT (9.0-12.0) sec INR (<1.2) APTT (22.0-30.0) sec Chloride (98-107) mmol/L Glucose (74-99) mg/dL POC Glucose (mg/dL) 114 H 105 H (75-99) mg/dL AST (14-36) U/L ALT (9-52) U/L Alkaline Phosphatase (38-126) U/L Total Protein (6.3-8.2) g/dL Albumin (3.5-5.0) g/dL Albumin (PEP) 3.07 L (3.80-4.90) g/dL Beta Globulins 0.54 L (0.60-1.30) g/dL Gamma Globulins 0.49 L (0.70-1.50) g/dL 12/02/18 12/02/18 12/02/18 Range/Units 08:22 08:22 08:22 MCV 102.8 H (80.0-100.0) fL Plt Count 92 L (150-450) k/uL PT 14.0 H (9.0-12.0) sec INR 1.4 H (<1.2) APTT 21.2 L (22.0-30.0) sec Chloride 108 H (98-107) mmol/L Glucose 164 H (74-99) mg/dL POC Glucose (mg/dL) (75-99) mg/dL AST 83 H (14-36) U/L ALT 179 H (9-52) U/L Alkaline Phosphatase 164 H (38-126) U/L Total Protein 5.2 L (6.3-8.2) g/dL Albumin 3.0 L (3.5-5.0) g/dL Albumin (PEP) (3.80-4.90) g/dL Beta Globulins (0.60-1.30) g/dL Gamma Globulins (0.70-1.50) g/dL 12/02/18 12/02/18 Range/Units 11:15 16:21 MCV (80.0-100.0) fL Plt Count (150-450) k/uL PT (9.0-12.0) sec INR (<1.2) APTT (22.0-30.0) sec Chloride (98-107) mmol/L Glucose (74-99) mg/dL POC Glucose (mg/dL) 135 H 126 H (75-99) mg/dL AST (14-36) U/L ALT (9-52) U/L Alkaline Phosphatase (38-126) U/L Total Protein (6.3-8.2) g/dL Albumin (3.5-5.0) g/dL Albumin (PEP) (3.80-4.90) g/dL Beta Globulins (0.60-1.30) g/dL Gamma Globulins (0.70-1.50) g/dL CT scan - abdomen: report reviewed CT scan - pelvis: report reviewed Assessment and Plan Plan: Assessment and recommendations Coumadin coagulopathy Liver transaminases Acute cholecystitis Possible underlying liver cirrhosis versus liver edema secondary to acute cholecystitis Plan Patient's INR continues to trend greater than 1.4 despite no anticoagulation therapy. Surgeries recommendation is for outpatient cholecystectomy would recommend discharged on Lovenox injections 1.5 mg/kg per day in anticipation of surgical intervention. Depending on postprocedure diagnosis patient may be bridged back to warfarin postoperatively. Discussed in detail with Dr. Sosa and with patient and . Thank you very much for allowing us to participate in the care of this patient we will follow along with
--- NOTE | 2018-12-02 19:02 | P.PN ---
Subjective This is a pleasant 48 years old female with past medical history of diabetes mellitus, hyperlipidemia, hypertension, pulmonary embolism on Coumadin. Patient presents because of epigastric pain and up in the chest to the lower neck. The pain is felt like pressure radiating to the back was pretty severe when she came in, currently she is pain free. No nausea vomiting, she had regular bowel movement yesterday. No dyspnea. No headache or syncope Patient Vitas looks stable, blood pressure 167/76. Heart rate in 50s. Labs reviewed and CBC is unremarkable, INR is 1.7, d-dimer is 1.7, creatinine 1.05. Liver enzymes markedly elevated at 478 and 277. Serial troponins are negative with less than 0.012. Elevated lipase more than 20,000. CAT scan of the abdomen with intravenous contrast showing gallstones and possible acute cholecystitis, cirrhosis of the liver. EKG showing normal sinus rhythm at [address]-T changes. Chest x-ray no acute process. 11/29/2018 pt is lying in bed , no more abd pain , no n/v today . surgery plan for outpt cholecystoctomy . Gi team input is appreciated , discussed the case today with lovely abel , work up is requested including MRI of the liver and afp for liver mass, serology work up for cirrhosis, and MRCP for biliarry pancreatitis, pt denies chest pain or dyspena ,she is hemodynmically stable 11/30/2018 Patient is feeling better. Diet been advanced gradually. She is tolerating that with no nausea vomiting. Her pain is better controlled, continue with pain medication. Coumadin still on hold for anticipating surgery for cholecystectomy. Cirrhosis and liver metastases and workup still pending. Including alpha-fetoprotein and MRI and serology. She still have some bradycardia. Liver enzymes elevated and we will keep trending down. Hepatitis panel is negative. Further workup still pending. Surgical and GI input is appreciated. 12/01/2018 Patient is an clear liquid diet with no nausea vomiting or abdominal pain. I discussed the case with Dr. Araiza from surgery today, no plans for inpatient surgical intervention and given her INR still on the high side at 1.6 and liver enzymes still elevated although they are trending down. Patient also reports that she bruises easily and she has several ecchymosis in her upper extremities. Patient could not fit into the MRI machine which can be done as an outpatient. Serology blood tests ordered by the GI team is still pending and patient can follow up with nutrition worker and outpatient were already she has an a ppointment. Patient coumadine is still on hold, given the above we will request contact center rep evaluation. We can advance diet as tolerated. 12/02/2018 pt is still with no abd pain or n/v , surgery team deferred cholecystectomy to outpt , one thing concerning is her high LFT and coagulopathy , her liver enz are trending down . pt was on coumadine for PE, however in view of her coagulopathy it will be hard for her to hold Coumadin before surgery , so hematology consult was called and pt was placed on lovenox intermediate dose, as it will be easier to stop prior to surgery and to control her anticoagulation at surgery time. i discussed this plan with the pt and at bed side and they agree with this and she told he she used to inject herself before .also pt is still on liquid diet and is being advanced today to soft/regular Objective - Vital Signs Vital signs: Vital Signs Temp 97.4 F L 12/02/18 15:00 Pulse 66 12/02/18 15:00 Resp 16 12/02/18 15:00 BP 143/77 12/02/18 15:00 Pulse Ox 96 12/02/18 15:00 Intake & Output 12/01/18 12/02/18 12/02/18 18:59 06:59 18:59 Intake Total 520 45 652 Balance 520 45 652 Weight 130.2 kg Intake: Oral 520 45 652 Other: Voiding Method Toilet Toilet # Voids 1 1 - Exam GENERAL: The patient is alert and oriented x3, not in any acute distress. Well developed, well nourished. HEENT: Pupils are round and equally reacting to light. EOMI. No scleral icterus. No conjunctival pallor. Normocephalic, atraumatic. No pharyngeal erythema. No thyromegaly. CARDIOVASCULAR: S1 and S2 present. No murmurs, rubs, or gallops. PULMONARY: Chest is clear to auscultation, no wheezing or crackles. ABDOMEN: Soft, nontender, nondistended, normoactive bowel sounds. No palpable organomegaly. MUSCULOSKELETAL: No joint swelling or deformity. EXTREMITIES: No cyanosis, clubbing, or pedal edema. NEUROLOGICAL: Gross neurological examination did not reveal any focal deficits. -SKIN: No rashes. Several bruises on the both upper arms and forearms - Labs CBC & Chem 7: 12/02/18 08:22 12/02/18 08:22 Labs: Abnormal Lab Results - Last 24 Hours (Table) 11/29/18 12/01/18 12/02/18 Range/Units 07:09 21:46 06:57 MCV (80.0-100.0) fL Plt Count (150-450) k/uL PT (9.0-12.0) sec INR (<1.2) APTT (22.0-30.0) sec Chloride (98-107) mmol/L Glucose (74-99) mg/dL POC Glucose (mg/dL) 114 H 105 H (75-99) mg/dL AST (14-36) U/L ALT (9-52) U/L Alkaline Phosphatase (38-126) U/L Total Protein (6.3-8.2) g/dL Albumin (3.5-5.0) g/dL Albumin (PEP) 3.07 L (3.80-4.90) g/dL Beta Globulins 0.54 L (0.60-1.30) g/dL Gamma Globulins 0.49 L (0.70-1.50) g/dL 12/02/18 12/02/18 12/02/18 Range/Units 08:22 08:22 08:22 MCV 102.8 H (80.0-100.0) fL Plt Count 92 L (150-450) k/uL PT 14.0 H (9.0-12.0) sec INR 1.4 H (<1.2) APTT 21.2 L (22.0-30.0) sec Chloride 108 H (98-107) mmol/L Glucose 164 H (74-99) mg/dL POC Glucose (mg/dL) (75-99) mg/dL AST 83 H (14-36) U/L ALT 179 H (9-52) U/L Alkaline Phosphatase 164 H (38-126) U/L Total Protein 5.2 L (6.3-8.2) g/dL Albumin 3.0 L (3.5-5.0) g/dL Albumin (PEP) (3.80-4.90) g/dL Beta Globulins (0.60-1.30) g/dL Gamma Globulins (0.70-1.50) g/dL 12/02/18 12/02/18 Range/Units 11:15 16:21 MCV (80.0-100.0) fL Plt Count (150-450) k/uL PT (9.0-12.0) sec INR (<1.2) APTT (22.0-30.0) sec Chloride (98-107) mmol/L Glucose (74-99) mg/dL POC Glucose (mg/dL) 135 H 126 H (75-99) mg/dL AST (14-36) U/L ALT (9-52) U/L Alkaline Phosphatase (38-126) U/L Total Protein (6.3-8.2) g/dL Albumin (3.5-5.0) g/dL Albumin (PEP) (3.80-4.90) g/dL Beta Globulins (0.60-1.30) g/dL Gamma Globulins (0.70-1.50) g/dL Assessment and Plan Assessment: Acute Cholecystitis with elevated liver enzymes. Improving. Resolving Acute Pancreatitis liver masses x2. Need outpatient follow-up liver cirrhosis. No diagnosis Bilateral upper extremity bruising and possible coagulopathy Chronic kidney disease, stage III. Patient got intravenous contrast and 11/27/2018 History of pulmonary embolism on Coumadin, change to lovenox upon discharge Essential hypertension Hyperlipidemia Diabetes mellitus Plan: This is a pleasant 6 years old female who presents with possible acute cholecystitis and elevated lipase. Advance diet as tolerated, pain management. Call surgical consult and follow-up is appreciated. GI input is appreciated as well and the cleared the patient.. We'll ask for hematology consult. Labs and medication were reviewed. Continue same treatment. Continue with symptomatic treatment. Resume home medication. Monitor lytes and vitals. DVT and GI prophylaxis. Further recommendations of the clinical course of the patient DVT prophylaxis: Subcutaneous heparin GI Prophylaxis: Pepcid Prognosis is guarded Patient is still needs monitoring for her proposed, hematology consult for her coagulopathy and the need for anticoagulation. And advancing diet start lovenox Possible discharge in 24-48 hours if patient keeps improving
[2018-12-02 21:43] LABS: Glucose,Whole Blood 142 mg/dL (75-99)
[2018-12-03] MEDS: ENOXAPARIN 100 MG/ML SYRINGE SQ SCH ×2 (00:52→16:07)
[2018-12-03 07:09] LABS: Glucose,Whole Blood 88 mg/dL (75-99)
[2018-12-03 07:46] VITALS: RESP 16; TEMP 97.8
[2018-12-03] MEDS ORDERED: FAMOTIDINE 20 MG TAB PO SCH (09:00)
[2018-12-03 09:53] LABS: Basophils # (A) 0.1 k/uL (0-0.2); Basophils % (A) 1 %; Eosinophils # (A) 0.2 k/uL (0-0.7); Eosinophils % (A) 3 %; HCT 45.6 % (34.0-46.0); HGB 14.7 gm/dL (11.4-16.0); Lymphocytes # (A) 1.7 k/uL (1.0-4.8); Lymphocytes % (A) 25 %; MCH 33.3 pg (25.0-35.0); MCHC 32.2 g/dL (31.0-37.0); MCV 103.5 fL (80.0-100.0); Macrocytosis Slight; Mean Platelet Volume 11.1; Monocytes # (A) 0.4 k/uL (0-1.0); Monocytes % (A) 6 %; Neutrophils # (A) 4.3 k/uL (1.3-7.7); Neutrophils % (A) 63 %; Platelet Count 113 k/uL (150-450); RBC 4.41 m/uL (3.80-5.40); WBC 6.8 k/uL (3.8-10.6)
[2018-12-03 09:57] LABS: INR 1.3 (<1.2); Prothrombin Time 13.4 sec (9.0-12.0)
[2018-12-03 10:05] LABS: Albumin 3.7 g/dL (3.5-5.0); Potassium 4.6 mmol/L (3.5-5.1); Total Bilirubin 1.3 mg/dL (0.2-1.3); Total Protein 6.2 g/dL (6.3-8.2)
[2018-12-03] MEDS: EZETIMIBE 10 MG TAB PO SCH (11:55)
[2018-12-03] MEDS: CAPSAICIN 0.025% CREAM 60 GM TUBE TOPICAL SCH (11:55)
[2018-12-03] MEDS: ATORVASTATIN 80 MG TAB PO SCH (11:56)
[2018-12-03] MEDS: amLODIPine 5 MG TAB PO SCH (11:56)
[2018-12-03] MEDS: LISINOPRIL 20 MG TAB PO SCH (11:56)
[2018-12-03] MEDS: metFORMIN 500 MG TAB PO SCH (11:56)
[2018-12-03] MEDS: ASPIRIN 81 MG PO SCH (11:56)
[2018-12-03] MEDS: METOPROLOL TARTRATE 50 MG TAB PO SCH (11:57)
[2018-12-03 12:05] LABS: Glucose,Whole Blood 123 mg/dL (75-99)
[2018-12-03 14:02] VITALS: BP 179/86; PULSE 64
== END 2018-12-03 16:49 | disposition home or self-care (01) | DRG 444 ==
LOC: EC 19:46 → 3SCARD 22:20 → OBSVTOIN 11-28 14:50 → 4SSUR 11-30 18:31
PROVIDERS: ADMIT Hospitalist; ATTEND Hospitalist
DX: K80.00 Calculus of gallbladder with acute cholecystitis without obstruction (principal); K85.10 Biliary acute pancreatitis without necrosis or infection; Z68.43 Body mass index [BMI] 50.0-59.9, adult; D68.8 Other specified coagulation defects; E66.01 Morbid (severe) obesity due to excess calories; E11.22 Type 2 diabetes mellitus with diabetic chronic kidney disease; R16.0 Hepatomegaly, not elsewhere classified; E83.42 Hypomagnesemia; E83.52 Hypercalcemia; I12.9 Hypertensive chronic kidney disease with stage 1 through stage 4 chronic kidney disease, or unspecified chronic kidney disease; N18.3 Chronic kidney disease, stage 3 (moderate); K74.60 Unspecified cirrhosis of liver; E78.5 Hyperlipidemia, unspecified; R32 Unspecified urinary incontinence; R00.1 Bradycardia, unspecified; T45.515A Adverse effect of anticoagulants, initial encounter; Z79.84 Long term (current) use of oral hypoglycemic drugs; Z79.01 Long term (current) use of anticoagulants; Z79.899 Other long term (current) drug therapy; Z86.711 Personal history of pulmonary embolism; Z98.890 Other specified postprocedural states; Z88.5 Allergy status to narcotic agent; Z91.041 Radiographic dye allergy status
CPT/HCPCS: 36415; 71046; 74177; 76705; 78071; 80053; 80061; 80074; 82103; 82105; 82150; 82390; 82728; 83516; 83690; 83735; 83880; 83970; 84165; 84443; 84484; 85025; 85027; 85379; 85610; 85730; 86038; 86376; 93005; 93306; 96361; 96374; 96375; 99285

== ENCOUNTER → 2018-12-16 | Outpatient (CLI) | payer MEDICARE ==
[2018-12-16 17:56] LABS: Basophils % (A) 1 %; Eosinophils # (A) 0.3 k/uL (0-0.7); Eosinophils % (A) 5 %; HCT 39.2 % (34.0-46.0); HGB 12.7 gm/dL (11.4-16.0); Lymphocytes # (A) 1.2 k/uL (1.0-4.8); Lymphocytes % (A) 21 %; MCH 32.7 pg (25.0-35.0); MCHC 32.4 g/dL (31.0-37.0); MCV 100.8 fL (80.0-100.0); Mean Platelet Volume 10.2; Monocytes # (A) 0.3 k/uL (0-1.0); Monocytes % (A) 6 %; Neutrophils # (A) 3.8 k/uL (1.3-7.7); Neutrophils % (A) 66 %; Platelet Count 107 k/uL (150-450); RBC 3.89 m/uL (3.80-5.40); RDW 13.8 % (11.5-15.5); WBC 5.7 k/uL (3.8-10.6)
[2018-12-16 18:13] LABS: INR 0.9 (<1.2); Prothrombin Time 9.9 sec (9.0-12.0)
[2018-12-17 01:42] LABS: African American GFR (CKD) 54.9 (60.0-200.0); Albumin 3.7 g/dL (3.80-4.90); Albumin/Globulin Ratio 2.64 (1.60-3.17); Anion Gap 8.2 mmol/L (4.00-12.00); BUN/Creat Ratio 18.18 Ratio (12.00-20.00); Calcium 10.2 mg/dL (8.7-10.3); Carbon Dioxide 29.8 mmol/L (21.6-31.8); Globulin 1.4 g/dL (1.6-3.3); Potassium 4.5 mmol/L (3.5-5.5); Total Bilirubin 0.7 mg/dL (0.2-1.2); Total Protein 5.1 g/dL (6.2-8.2)
== END | disposition home or self-care (01) ==
LOC: LABWHC1 16:16
PROVIDERS: ATTEND Surgery
DX: K86.1 Other chronic pancreatitis (principal); Z79.01 Long term (current) use of anticoagulants
CPT/HCPCS: 36415; 80053; 82150; 85025; 85610; 85730

== ENCOUNTER 2019-01-10 08:45 | Day surgery (SDC) | payer MEDICARE ==
[2019-01-10] MEDS ORDERED: ALPRAZolam 0.25 MG TAB PO STA (09:05)
[2019-01-10 09:15] VITALS: TEMP 97.5
[2019-01-10 09:40] LABS: Mean Platelet Volume 10.1; Platelet Count 104 k/uL (150-450)
[2019-01-10 09:57] LABS: INR 0.9 (<1.2); Prothrombin Time 9.7 sec (9.0-12.0)
--- NOTE | 2019-01-10 12:45 | US ---
EXAMINATION TYPE: US biopsy liver DATE OF EXAM: 01/10/2019 HISTORY: Liver masses. FINDINGS: Maximal barrier technique was utilized. The skin overlying a suitable path to the patient' s left lobe liver mass was localized with ultrasound and the overlying skin prepped and draped. Ultr asound was utilized with sterile technique. Lidocaine was used for local anesthesia. A skin osmar wa s made with a scalpel. An 18-gauge needle was advanced under direct ultrasound guidance and core spe cimen obtained of the mass. Specimen submitted in formalin to Pathology. Following the procedure, h emostasis achieved and the patient is discharged in stable condition without complication. IMPRESSION:STATUS POST ULTRASOUND GUIDED CORE BIOPSY OF left lobe liver MASS, PATHOLOGY IS PENDING. THIS PROCEDURE IS PERFORMED BY THE UNDERSIGNED.
[2019-01-10 13:01] VITALS: RESP 16
[2019-01-10 17:42] VITALS: BP 141/70; PULSE 79
== END 2019-01-10 15:05 | disposition home or self-care (01) ==
LOC: RADPROMAIN 08:45
PROVIDERS: ATTEND Internal Medicine Gastroenterology
DX: C22.8 Malignant neoplasm of liver, primary, unspecified as to type (principal); Z80.3 Family history of malignant neoplasm of breast; Z82.49 Family history of ischemic heart disease and other diseases of the circulatory system; I10 Essential (primary) hypertension; Z86.718 Personal history of other venous thrombosis and embolism; E78.5 Hyperlipidemia, unspecified; Z88.5 Allergy status to narcotic agent; Z79.899 Other long term (current) drug therapy; Z79.84 Long term (current) use of oral hypoglycemic drugs; Z91.041 Radiographic dye allergy status
CPT/HCPCS: 36415; 47000; 76942; 85049; 85610; 88307; 88341; 88342

== ENCOUNTER 2019-10-03 12:23 | Emergency (ER) | payer MEDICARE ==
[2019-10-03 12:39] VITALS: TEMP 97.6
--- NOTE | 2019-10-03 13:55 | ED ---
Fall HPI - General Chief Complaint: Fall Stated Complaint: Positional asphyxia Time Seen by Provider: 10/03/19 12:36 Source: patient, EMS Mode of arrival: EMS - History of Present Illness Initial Comments: 78-year-old female presenting for fall--patient was ambulating to bathroom when she fell with home health aide. Patient is obese and they state secondary to weight unable to lift patient was blue and they called EMS. EMS arrived and states it appeared patient had positional asphyxia. Patient chin to chest, color and all VS improved with repositioning. Patient famiyl states they were stressed and told they could reverse hospice so they could go to the hospital for evaluation .Patient family signed reversal, patient brought to the ER. On arrival states she is at baseline. He states he does want her on hospice/comfort care but feels he can no longer manage this at home. He does not want further work up/intervention or care. Patient VS stable at this time, she is responsive. - Related Data Home Medications Medication Instructions Recorded Confirmed Unknown Pain Medication 1 dose PO DIRECTED 10/03/19 10/03/19 Allergies Allergy/AdvReac Type Severity Reaction Status Date / Time adhesive Allergy Rash/Hives Verified 10/03/19 15:08 Iodinated Contrast Media Allergy Itching Verified 10/03/19 15:08 [Iodinated Contrast Media - IV Dye] morphine Allergy Itching Verified 10/03/19 15:08 Review of Systems ROS Statement: Those systems with pertinent positive or pertinent negative responses have been documented in the HPI. ROS Other: All systems not noted in ROS Statement are negative. Past Medical History Past Medical History: Chest Pain / Angina, Diabetes Mellitus, Hyperlipidemia, Hypertension, Pulmonary Embolus (PE), Renal Disease Additional Past Medical History / Comment(s): gallstones, In hospice fro neoplasmic liver History of Any Multi-Drug Resistant Organisms: None Reported Additional Past Surgical History / Comment(s): ovarian cyst surgery 1957 Past Anesthesia/Blood Transfusion Reactions: No Reported Reaction Smoking Status: Never smoker Past Alcohol Use History: None Reported Past Drug Use History: None Reported - Past Family History Mother Family Medical History: Cancer Additional Family Medical History / Comment(s): breast cancer Father Family Medical History: Myocardial Infarction ([place]) General Exam - General Exam Comments Initial Comments: General: The patient responds to sound, able to hold small short conversation Eye: +2 mm pupils are equal, round and reactive to light, extra-ocular movements are intact. No nystagmus. There is normal conjunctiva bilaterally. No signs of icterus. Ears, nose, mouth and throat: There are moist mucous membranes and no oral lesions. Neck: The neck is supple, there is no tenderness or JVD. Cardiovascular: There is a regular rate and rhythm. No murmur, rub or gallop is appreciated. Respiratory: Lungs are clear to auscultation, respirations are non-labored, breath sounds are equal. No wheezes, stridor, rales, or rhonchi. Gastrointestinal: Soft, non-distended, non-tender abdomen without masses or organomegaly noted. There is no rebound or guarding present. Musculoskeletal: Normal ROM, no tenderness. Strength 5/5. Sensation intact. Radial pulses equal bilaterally 2+. Neurological: AAOx1. Knows self, no place or time. Patient moves all 4 extremities. Skin: Skin is warm and dry and no rashes or lesions are noted. Psychiatric: Flat Limitations: altered mental status Course Vital Signs 10/03/19 10/03/19 12:30 16:48 Temperature 97.6 F Pulse Rate 125 H 89 Respiratory 20 18 Rate Blood Pressure 117/82 113/99 O2 Sat by Pulse 99 99 Oximetry - Reevaluation(s) Reevaluation #1: Patient care discussed with who states he is power of associate attorney. He states that they had him sign a form to stop hospice--while patient was being evaluated by EMS. 10/03/19 Reevaluation #2: I contacted Blanca with [facility], she states that family did sign a form to end hospice services and patient a full code. bedside is refusing work up for fall-- but continues to request a hospice home vs home hospice. I recommended patient speak with family. 10/03/19 Reevaluation #3: Blanca called back stating she is speaking with Radha-whom will contact Margie at [facility] to discuss care that is in an extended care/hospice facility. 10/03/19 Medical Decision Making - Medical Decision Making 78-year-old female presenting today for chief complaint of fall. Patient was said to be positionally succeeded on arrival per report of EMS patient at baseline per on arrival in ER. He wanted hospice care to continue. Hospice contacted, care resumed. Patient maximilian wanted to continue to try at home again with hospital bed that hospice services state they would supply. chauncey transferred home by EMS. - Lab Data Lab Results 10/03/19 Range/Units 14:30 Coronavirus (PCR) Not Detected (Not Detectd) Disposition Clinical Impression: Fall, Tachycardia Disposition: HOME SELF-CARE Condition: Stable Additional Instructions: Please use medication as discussed. Please follow-up with family doctor in the next 2 days. Please return to emergency room if the symptoms increase or worsen or for any other concerns. Is patient prescribed a controlled substance at d/c from ED?: No Referrals: Malu Murrell III, MD [Primary Care Provider] - 1-2 days Time of Disposition: 15:42
[2019-10-03 16:49] VITALS: BP 113/99; PULSE 89; RESP 18
== END 2019-10-03 16:49 | disposition home or self-care (01) ==
LOC: EC 12:23
DX: Z03.818 Encounter for observation for suspected exposure to other biological agents ruled out (principal); R00.0 Tachycardia, unspecified; R41.82 Altered mental status, unspecified; I25.2 Old myocardial infarction; Z91.048 Other nonmedicinal substance allergy status; Z91.041 Radiographic dye allergy status; Z88.5 Allergy status to narcotic agent; Z82.49 Family history of ischemic heart disease and other diseases of the circulatory system
CPT/HCPCS: 87635; 99284